=== PATIENT | male | born 1935 | race African-American/Black ===

== ENCOUNTER 2017-05-11 13:03 | Inpatient (IN) | payer MEDICARE, OTHER ==
[~2017-05-11] VITALS: Ht 188 cm; Wt 88.9 kg
[2017-05-11] MEDS ORDERED: SODIUM CHLORIDE 0.9% 500ML 500 ML IV STA (13:44)
[2017-05-11] MEDS ORDERED: SODIUM CHLORIDE 0.9% 500ML 500 ML ONE (13:54)
[2017-05-11 14:20] LABS: BASOPHILS # (AUTO) 0.1 (0.0-0.1); BASOPHILS % 0.8 % (0.0-1.0); EOSINOPHILS # (AUTO) 0.3 (0.0-0.4); EOSINOPHILS % 4.2 % (0.0-6.0); HEMOGLOBIN 12.3 g/dL (14.0-18.0); LYMPHOCYTES # (AUTO) 1.4 (1.0-3.2); LYMPHOCYTES % 17.6 % (18.0-39.1); MEAN CORPUSCULAR HEMOGLOBIN 25.3 pg (28-32); MEAN CORPUSCULAR HGB CONC 30.8 g/dL (31-35); MEAN CORPUSCULAR VOLUME 82.1 fL (81-99); MONOCYTES # (AUTO) 0.6 (0.2-0.8); MONOCYTES % 7.7 % (4.4-11.3); NEUTROPHILS # (AUTO) 5.3 (2.1-6.9); NEUTROPHILS % 69.2 % (38.7-80.0); PLATELET COUNT 369 x10e3/uL (140-360); RED BLOOD COUNT 4.87 x10e6/uL (4.3-5.7); RED CELL DISTRIBUTION WIDTH 15.4 % (11.7-14.4)
[2017-05-11 14:22] LABS: BILIRUBIN,URINE NEGATIVE (NEGATIVE); KETONES,URINE NEGATIVE (NEGATIVE); LEUKOCYTE ESTERASE ,URINE 2+ (NEGATIVE); URINE UROBILINOGEN 1 mg/dL (0.2 - 1)
[2017-05-11 14:24] LABS: INR 0.86; PROTHROMBIN TIME 12.2 seconds (11.9-14.5)
[2017-05-11 14:32] LABS: ALANINE AMINOTRANSFERASE 14 IU/L (0-55); ALBUMIN 2.5 g/dL (3.5-5.0); ALBUMIN/GLOBULIN RATIO 0.5 (0.8-2.0); ALKALINE PHOSPHATASE 97 IU/L (40-150); ANION GAP 10.9 mmol/L (8-16); BLOOD UREA NITROGEN 11 mg/dL (7-26); BUN/CREATININE RATIO 14 (6-25); CALCIUM 8.4 mg/dL (8.4-10.2); CARBON DIOXIDE 30 mmol/L (22-29); CHLORIDE 103 mmol/L (98-107); CREATININE, SERUM 0.81 mg/dL (0.72-1.25); EST GLOMERULAR FILTRATION RATE > 60 ML/MIN (60-); GLUCOSE 129 mg/dL (74-118); LIPASE 28 U/L (8-78); POTASSIUM 3.9 mmol/L (3.5-5.1); SODIUM 140 mmol/L (136-145)
[2017-05-11 14:41] LABS: CLARITY,URINE CLOUDY (CLEAR); COLOR,URINE AMBER (YELLOW); NITRITE,URINE POSITIVE (NEGATIVE); PROTEIN,URINE DIPSTICK 2+ (NEGATIVE)
[2017-05-11 14:44] LABS: BACTERIA,URINE FEW /HPF; RBC,URINE >50 /HPF (0-5); WBC,URINE (MAN) >50 /HPF (0-5)
[2017-05-11] MEDS ORDERED: CEFTRIAXONE SOD 1 GM VIAL IM ONE (15:45)
--- NOTE | 2017-05-11 15:45 | Diagnostic Imaging Report ---
PROCEDURE:TESTICULAR ULTRASOUND COMPARISON:None. INDICATIONS:SCROTAL SWELLING TECHNIQUE: Castillo-scale and color doppler images of the testicles and scrotal contents were obtained. Duplex imaging with spectral waveform analysis was performed of the testicular arteries and veins. FINDINGS: Exam limited due to patient positioning. RIGHT SCROTUM: Testicle: 2.8 x 3.1 x 2.6 cm. Mildly heterogeneous echogenicity. 0.5 x 0.3 x 0.3 cm rounded, anechoic lesion in the medial aspect, likely representing a simple testicular cyst. No microcalcifications. No other focal lesions. Epididymal head: A 4.5 x 1.6 x 1.9 cm structure with heterogeneous echotexture is noted in the expected location of the right epididymal head, with dilated blood vessels. Hydrocele: None Varicocele: See above LEFT SCROTUM: Testicle: 4.3 x 3.3 x 4.2 cm. Heterogeneous echogenicity and moderately increased vascularity. 2.8 x 2.0 x 2.0 cm complex solid/cystic lesion is noted in the mid aspect with surrounding vascularity. Epididymal head: 1.2 x 1.6 x 1.9 cm. No focal lesions. No increased vascularity. Hydrocele: Small to moderate Varicocele: None. Mild to moderate edema of the overlying scrotal skin, without well-defined focal lesions or fluid collections. CONCLUSION: 1. Findings suggestive of left orchitis. A complex 2.8 cm solid/cystic lesion in the mid aspect of the left testicle is worrisome for testicular abscess. 2. The right epididymal head is difficult to visualize. A 4.5 cm body structure with heterogeneous echotexture and dilated blood vessels in the expected location of the epididymis may represent a varicocele extending to the epididymal head. 3. 0.5 cm simple right testicular cyst. 4. Small to moderate left hydrocele. Jose Gan M.D. Dictated by: Jose Gan M.D. on 05/11/2017 at 15:54 Electronically approved by: Jose Gan M.D. on 05/11/2017 at 15:54
--- NOTE | 2017-05-11 15:45 | Diagnostic Imaging Report ---
PROCEDURE:TESTICULAR DOPPLER ULTRASOUND COMPARISON:None. CONCLUSION: Please see testicular ultrasound performed same day. Jose Gan M.D. Dictated by: Jose Gan M.D. on 05/11/2017 at 15:54 Electronically approved by: Jose Gan M.D. on 05/11/2017 at 15:54
[2017-05-11] MEDS ORDERED: CEFTRIAXONE SOD 1 GM VIAL IV ONE (16:15)
[2017-05-11] MEDS ORDERED: PIPERACILLIN/TAZO 4.5 GM 100 ML IV ONE (16:15)
[2017-05-11] MEDS ORDERED: MORPHINE SULFATE 2 MG/ML SYR IV PRN (17:15)
[2017-05-11] MEDS ORDERED: SODIUM CHLORIDE FLUSH 10 ML SYR INJ PRN (17:15)
[2017-05-11] MEDS ORDERED: ONDANSETRON HCL INJ 2 MG/ML VIAL IV PRN (17:15)
[2017-05-11] MEDS ORDERED: PIPERACILLIN/TAZO 4.5 GM 50 ML IV ONE (17:45)
[2017-05-11] MEDS: SODIUM CHLORIDE 0.9% 1000ML 1,000 ML IV SCH (17:47)
[2017-05-11] MEDS ORDERED: PIPER-TAZ 3.375 GM 50 ML IV SCH (18:00)
[2017-05-11] MEDS ORDERED: CEFTRIAXONE1 GM IM (18:00)
[2017-05-11] MEDS ORDERED: LASIX20 MG PO (18:00)
[2017-05-11] MEDS ORDERED: NITROFURANTOIN100 MG PO (18:00)
[2017-05-11] MEDS ORDERED: LORAZEPAM0.5 MG PO (18:00)
[2017-05-11] MEDS ORDERED: BISCOLAX10 MG RC (18:00)
[2017-05-11] MEDS ORDERED: BISACODYL5 MG PO (18:00)
[2017-05-11] MEDS ORDERED: LISINOPRIL10 MG PO (18:00)
[2017-05-11] MEDS ORDERED: REMERON15 MG PO (18:00)
[2017-05-11] MEDS ORDERED: CLONIDINE HCL0.1 MG PO (18:00)
[2017-05-11] MEDS ORDERED: COREG12.5 MG PO (18:00)
[2017-05-11] MEDS ORDERED: HYDRALAZINE HCL25 MG PO (18:00)
[2017-05-11] MEDS ORDERED: SEROQUEL25 MG PO (18:00)
[2017-05-11] MEDS ORDERED: FERROUS SULFAT325 MG PO (18:00)
--- NOTE | 2017-05-11 20:49 | History and Physical ---
CHIEF COMPLAINT: The patient's daughter is at bedside. The patient has dementia. [facility] is a [facility] resident. HISTORY OF PRESENT ILLNESS: Mr. Pathak is an 82-year-old male who was sent from the [facility] because of scrotal swelling and possible bleeding from the scrotal area. In the emergency room, scrotal exam showed enlargement of the scrotum. The patient underwent a testicular ultrasound which showed findings suggestive of left orchitis and worrisome for testicular abscess. The patient has dementia. He is complaining of some pain in the scrotal area, but denies any complaints. He has a history of stroke, CHF, and has been a [facility] resident, bedbound. REVIEW OF SYSTEMS: GENERAL: Denies any fever or chills. HEAD: Denies any head trauma or head injury. ENT: Denies any earache, nosebleed, throat pain. CVS: Denies any chest pain. RESPIRATORY: Denies any shortness of breath. GI: Denies any nausea, vomiting. MUSCULOSKELETAL: Denies any arthralgias or myalgias. NEUROLOGIC: The patient has history of stroke and possible weak on the left side. PAST MEDICAL HISTORY: Dementia, hypertension, hyperlipidemia, history of stroke with left-sided weakness. He is able to move the left side. PAST SURGICAL HISTORY: Hip fracture repair. FAMILY AND SOCIAL HISTORY: [facility] is [facility]. He does not have any smoking history or drinking history. Daughter is at the bedside. PHYSICAL EXAMINATION VITAL SIGNS: Temperature 98.3, pulse 59, blood pressure 159/80, respiratory rate 18, O2 sat 98%. SKIN: Warm and dry. GENERAL APPEARANCE: He is an elderly male not in any obvious distress. He is awake and alert but confused. HEENT: Head is atraumatic and normocephalic. The right eyelid is drooping. Oral mucosa is dry. Possible facial droop, which is old. Poor oral hygiene. NECK: Supple. No JVD. Thyroid is not enlarged. CHEST: Clear to auscultation bilaterally. No wheezing, no crackles. HEART: S1 and S2 audible. ABDOMEN: Soft, nontender. : Scrotal enlargement. EXTREMITIES: No clubbing, cyanosis or edema. NEURO: He is awake and alert. He follows commands. He has some weakness on the left side. LABORATORY DATA: White count of 7.6, hemoglobin 12.3, platelet count 369,000. Chemistry is within normal limits. Sodium 140, potassium 3.9, BUN 11, creatinine 0.89. Blood cultures and urine cultures are pending. ASSESSMENT: Hal Pathak is a [facility] resident with dementia. He presented with scrotal abscess and swelling. CURRENT PROBLEMS 1. Scrotal abscess, swelling. 2. Hypertension. 3. Dementia. PLAN: 1. Urology consult. 2. IV Zosyn. 3. Will consult infectious disease. 4. Continue the patient on IV hydration. 5. Discussed with the patient's daughter at bedside. Job#: [id number]
[2017-05-11 20:55] VITALS: BP 196/88
[2017-05-11 23:27] VITALS: BP 196/88
[2017-05-12] VITALS (8 sets, daily range): BP systolic 130–208; BP diastolic 61–100
[2017-05-12] MEDS: SODIUM CHLORIDE 0.9% 1000ML 1,000 ML IV SCH ×5 (00:58→23:23)
[2017-05-12] MEDS: HYDRALAZINE HCL 20 MG/ML VIAL IV PRN (01:26)
[2017-05-12] MEDS ORDERED: PIPER-TAZ 3.375 GM 50 ML IV SCH (02:00)
[2017-05-12 06:43] LABS: BASOPHILS # (AUTO) 0.1 (0.0-0.1); BASOPHILS % 1.1 % (0.0-1.0); EOSINOPHILS # (AUTO) 0.3 (0.0-0.4); EOSINOPHILS % 4.4 % (0.0-6.0); HEMATOCRIT 33.3 % (38.2-49.6); HEMOGLOBIN 10.7 g/dL (14.0-18.0); LYMPHOCYTES # (AUTO) 1.6 (1.0-3.2); LYMPHOCYTES % 21.4 % (18.0-39.1); MEAN CORPUSCULAR HEMOGLOBIN 25.5 pg (28-32); MEAN CORPUSCULAR HGB CONC 32.1 g/dL (31-35); MEAN CORPUSCULAR VOLUME 79.3 fL (81-99); MONOCYTES # (AUTO) 0.6 (0.2-0.8); MONOCYTES % 8.6 % (4.4-11.3); NEUTROPHILS # (AUTO) 4.7 (2.1-6.9); NEUTROPHILS % 64.2 % (38.7-80.0); PLATELET COUNT 327 x10e3/uL (140-360); RED CELL DISTRIBUTION WIDTH 15.3 % (11.7-14.4)
[2017-05-12 07:02] LABS: ALANINE AMINOTRANSFERASE 12 IU/L (0-55); ALBUMIN/GLOBULIN RATIO 0.5 (0.8-2.0); ALKALINE PHOSPHATASE 79 IU/L (40-150); ANION GAP 9.6 mmol/L (8-16); BLOOD UREA NITROGEN 9 mg/dL (7-26); BUN/CREATININE RATIO 15 (6-25); CALCIUM 8.1 mg/dL (8.4-10.2); CARBON DIOXIDE 26 mmol/L (22-29); CHLORIDE 109 mmol/L (98-107); CREATININE, SERUM 0.62 mg/dL (0.72-1.25); EST GLOMERULAR FILTRATION RATE > 60 ML/MIN (60-); GLUCOSE 98 mg/dL (74-118); POTASSIUM 3.6 mmol/L (3.5-5.1); SODIUM 141 mmol/L (136-145)
--- NOTE | 2017-05-12 09:22 | Consultation ---
DATE OF CONSULTATION: May 12, 2017 UROLOGY CONSULTATION REASON FOR CONSULTATION: Orchitis. HISTORY OF PRESENT ILLNESS: Hal Pathak is an 82-year-old man who is debilitated. He has dementia and lives in a [facility]. The patient was previously seen by Dr. Cote in [place]. The patient apparently has enlarged prostate, as well as chronic urinary retention. This has been managed with a Samuels catheter. He used to get that changed at Dr. Cote's office on a monthly basis. Since the patient has been in a [facility], it has been changed in the [facility]. He has not had urological followup in some time. The patient has had recurrent urinary tract infections. Last week was noted to have enlargement of the testicle. He was transferred to the emergency room where he was evaluated and admitted. Most of information is obtained from the patient's daughter, who is at his bedside and his main caregiver. She denies any previous urolithiasis, and denies any previous urological surgery. PAST MEDICAL AND SURGICAL HISTORY 1. Dementia. 2. Hypertension. 3. Hyperlipidemia. 4. History of cerebrovascular accident with left-sided weakness. 5. Status post right hip fracture with ORIF. 6. History of gastrostomy tube that the patient pulled out, and he has since been eating pureed food. CURRENT MEDICATIONS: Please refer to the MAR. ALLERGIES: NONE KNOWN. SOCIAL HISTORY: The patient quit smoking over 20 years ago. There is no current or recent history of smoking, ethanol or drug use. 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 He has a supportive daughter at the bedside. FAMILY HISTORY: Noncontributory to the urological problems. REVIEW OF SYSTEMS: As consistent with the above history of present illness and past medical history, and otherwise negative for all other systems. PHYSICAL EXAMINATION GENERAL: Elderly debilitated man lying in bed in no apparent distress. VITALS: He is currently afebrile with vital signs currently stable. ABDOMEN: Soft, nondistended and nontender without costovertebral angle tenderness. Kidneys not palpable. No hepatosplenomegaly. No obvious evidence of hernia. GENITOURINARY: The patient's scrotum is enlarged. There is an enlarged left testis and epididymis. It does not seem to be tender, but it is fairly substantial. There is no skin fixation. There is no palpable abscesses. No palpable area for drainage. The right testis is not well discernable. Needs to be evaluated on future examination. The patient has an uncircumcised male phallus with severe traumatic hypospadias on to the penile shaft with destruction of the ventral foreskin as well. For the remaining physical examination systems, please refer to the admission history and physical on the chart. LABORATORY STUDIES: The patient's urine and blood cultures are pending. I instructed the emergency room in how to obtain a urine culture from the tubing and not from the bag directly. Hopefully, that was done as directed. White blood cell count 7330, hemoglobin 10.7 and platelets 327,000. The patient's creatinine is normal at 0.62. Calcium is slightly low at 8.1. Urinalysis significant for greater than 50 rbcs and greater than 50 wbcs, nitrite positive urine. Ultrasound of the scrotum revealed an unremarkable testicle with a testicular cyst, as well as a 4.5-cm structure with heterogenous echotexture in the expected location of the right epididymal head. The left testis is enlarged with heterogenous echogenicity and increased vascularity. Also, with a 2.8-cm cystic and solid lesion in the midaspect surrounding vascularity. Also, a left-sided hydrocele. ASSESSMENT 1. Left epididymal orchitis. 2. Possible right epididymitis. 3. Small right testicular cyst. 4. Left hydrocele. 5. BPH. 6. Urinary retention. 7. Urinary tract infection. 8. Traumatic hypospadias. 9. Anemia. 10. Hypocalcemia. 11. Microhematuria. 12. Chronic Samuels catheter. PLAN 1. I agree with the choice of Zosyn. However, the dose should be decreased due to the patient's advanced age. 2. I discussed with the patient's daughter the option of suprapubic cystostomy placement by the radiologist in order to minimize the progression of his penile and urethral damage, as well as decrease the problems with complicated urinary tract infections. He will probably continue to have urinary tract infections. Hopefully, the severity of them could be minimized. She is agreeable to this. 3. I will order a CT stone protocol to evaluate the patient's catheter placement, as well as ensure there is no stones or any other etiology for infection in this patient with chronic Samuels catheter. Thank you very much for involving us in the care of your patient. Will be happy to follow him along with you, as well as an outpatient. Job#: [id number] RAMOS
[2017-05-12] MEDS: MORPHINE SULFATE INJ 4 MG/ML INJ IV PRN (10:34)
[2017-05-12] MEDS ORDERED: SODIUM CHLORIDE 0.9% 500ML 1,000 ML ONE (13:36)
[2017-05-12] MEDS ORDERED: IOPAMIDOL 370 MG/ML 200 ML INFUS..BTL INJ ONE (13:36)
[2017-05-12] MEDS ORDERED: LIDOCAINE HCL 2% LOCAL 20 ML VIAL ONE (13:36)
--- NOTE | 2017-05-12 13:52 | Diagnostic Imaging Report ---
PROCEDURE: CT ABDOMEN AND PELVIS WITHOUT CONTRAST TECHNIQUE: The abdomen and pelvis were scanned utilizing a multidetector helical scanner from the diaphragm to the lesser trochanter without contrast medium. No IV contrast was administered /per protocol/per physician request). Coronal and sagittal multiplanar reformations were obtained. COMPARISON: Patients [facility], US, US TESTICULAR, 05/11/2017, 14:34. INDICATIONS: UTI'S FINDINGS: Artifact from arms placed across patient's torso. ABSENCE OF INTRAVENOUS CONTRAST DECREASES SENSITIVITY FOR DETECTION OF FOCAL LESIONS AND VASCULAR PATHOLOGY. LOWER THORAX: Left basilar pleural-parenchymal scarring. Mild right basilar pleural-parenchymal scarring. No pleural effusion. HEPATOBILIARY: No focal hepatic lesions. No biliary ductal dilatation. SPLEEN: No splenomegaly. PANCREAS: No focal masses or ductal dilatation. ADRENALS: Thickening of the left adrenal gland. KIDNEYS/URETERS: No hydronephrosis. 4.7 cm low-attenuation lesion exophytic off the interpolar region of the right kidney. 2.2 cm low-attenuation lesion in the posterior interpolar region of the right kidney some of these are consistent with cysts. There is a 0.4 cm calculus in the posterior lower pole of the right kidney. PELVIC ORGANS/BLADDER: A Samuels catheter is present, with balloon inflated within the posterior penile urethra level recommend advancement into the urinary bladder. The prostate is enlarged measuring 6.2 cm in transverse dimension, and 7.7 cm in length. Punctate prostatic calcifications. PERITONEUM / RETROPERITONEUM: No free air or fluid. LYMPH NODES: No lymphadenopathy. VESSELS: Atherosclerotic calcifications of the aorta and iliac arteries without aneurysmal dilatation. GI TRACT: No distention or wall thickening. BONES AND SOFT TISSUES: Bilateral small fat-containing inguinal hernias, left greater than right. Small bilateral hydroceles. Left hip prosthesis. Degenerative disc disease at L4-L5. IMPRESSION: 1. a Samuels catheter balloon inflated within the posterior penile urethra; recommend advancement which may be difficult due to enlarged prostate. Reported to [facility] ICU nurse at 1:30 pm on 05/12/2016. 2. Simple represent a nonobstructing calculus in the lower pole of the right kidney. Mikey Diaz M.D. Dictated by: Mikey Diaz M.D. on 05/12/2017 at 14:01 Electronically approved by: Mikey Diaz M.D. on 05/12/2017 at 14:01
[2017-05-12] MEDS: PIPERACILLIN/TAZO 2.25 GM 50 ML IV SCH ×2 (14:00→23:22)
[2017-05-12] MEDS ORDERED: IOPAMIDOL 300MG/ML 100 ML INFUS..BTL IV ONE (14:02)
[2017-05-12] MEDS ORDERED: SODIUM CHLORIDE 0.9% 100 ML 100 ML ONE (14:04)
[2017-05-12] MEDS ORDERED: FENTANYL CITRATE/PF 100MCG/2 ML INJ ONE (14:13)
[2017-05-12] MEDS ORDERED: MIDAZOLAM HCL 2 MG/2 ML VIAL ONE (14:13)
[2017-05-13] VITALS (8 sets, daily range): BP systolic 129–196; BP diastolic 60–98
[2017-05-13] MEDS: MORPHINE SULFATE INJ 4 MG/ML INJ IV PRN (00:24)
[2017-05-13] MEDS: PIPERACILLIN/TAZO 2.25 GM 50 ML IV SCH (05:45)
[2017-05-13] MEDS: HYDRALAZINE HCL 20 MG/ML VIAL IV PRN ×3 (06:35→17:17)
[2017-05-13] MEDS: SODIUM CHLORIDE 0.9% 1000ML 1,000 ML IV SCH (10:48)
[2017-05-13] MEDS: AMIKACIN SULFATE 500 MG in SODIUM CHLORIDE 0.9% 100 ML IV SCH (13:52)
[2017-05-13] MEDS ORDERED: ACETAMINOPHEN 325 MG TAB PO PRN (17:15)
[2017-05-13] MEDS ORDERED: AMIKACIN SULFATE 250 MG/ML 2ML VIAL IV SCH (21:00)
[2017-05-14] VITALS (8 sets, daily range): BP systolic 164–196; BP diastolic 74–93
[2017-05-14] MEDS: HYDRALAZINE HCL 20 MG/ML VIAL IV PRN ×4 (01:12→20:08)
[2017-05-14] MEDS: SODIUM CHLORIDE 0.9% 1000ML 1,000 ML IV SCH ×3 (01:12→17:10)
[2017-05-14] MEDS: AMIKACIN SULFATE 500 MG in SODIUM CHLORIDE 0.9% 100 ML IV SCH ×2 (01:12→14:00)
[2017-05-15] VITALS: BP 117/80
[2017-05-15] MEDS: SODIUM CHLORIDE 0.9% 1000ML 1,000 ML IV SCH ×3 (00:10→20:16)
[2017-05-15] MEDS: HYDRALAZINE HCL 20 MG/ML VIAL IV PRN ×3 (00:10→15:17)
[2017-05-15] MEDS: AMIKACIN SULFATE 500 MG in SODIUM CHLORIDE 0.9% 100 ML IV SCH ×2 (02:00→14:23)
[2017-05-15 04:00] VITALS: BP 164/70
--- NOTE | 2017-05-15 09:18 | Consultation ---
DATE OF CONSULTATION: May 14, 2017 INFECTIOUS DISEASE CONSULTATION I would like to thank Dr. Buddy Mcintosh for this interesting consult. HISTORY OF PRESENT ILLNESS: An 82-year-old gentleman with a past medical history of dementia, hypertension and hyperlipidemia, BPH, chronic Samuels, recurrent urinary tract infection. The patient has been admitted from [facility] for scrotal swelling and possible bleeding from the scrotal area, which the patient had a testicular ultrasound which showed suggestive of left orchitis and some testicular abscess. He is complaining of pain in the scrotal area, but other than that he does not have any fever, chills or diarrhea. Our service has been asked to evaluate and give further recommendations regarding the antibiotics. PAST MEDICAL HISTORY: Hypertension, hyperlipidemia, dementia, BPH, stroke with left-sided weakness, chronic Samuels. PAST SURGICAL HISTORY: Chronic Samuels, hip fracture repair. MEDICATIONS: Reviewed. ALLERGIES: NO KNOWN DRUG ALLERGIES. FAMILY HISTORY/SOCIAL HISTORY: Patient lives in a longterm. No history of smoking or drinking alcohol. Daughter is the feed mixer helper who is at the bedside. PHYSICAL EXAMINATION VITALS: Temperature is 98.6, respiratory rate 18, heart rate 88, blood pressure 160/80. CHEST: Clear to auscultation bilaterally. HEART: S1 and S2 is normal. ABDOMEN: Soft and nontender. : The patient has scrotal swelling and a chronic Samuels in place. NEUROLOGICAL: He is awake and alert, and follows commands. LABS: Reviewed. ASSESSMENT AND PLAN: This is a very pleasant 82-year-old gentleman with a past medical history of dementia, hypertension, stroke, hyperlipidemia, BPH, chronic Samuels presents with sepsis, urinary tract infection, orchitis. I am not concerned about testicular abscess. Will start the patient on intravenous Zosyn 3.375 q.8 h. Urology evaluation is requested. Will continue the patient on this antibiotic and will follow him for further recommendations. Job#: [id number] RAMOS
[2017-05-15 12:01] VITALS: BP 157/76
[2017-05-15 16:00] VITALS: BP 191/89
[2017-05-15 20:16] VITALS: BP 159/77
[2017-05-15 20:20] VITALS: BP 159/77
[2017-05-16 00:31] VITALS: BP_SYST 178; BP_SYST 195; BP_DIAS 80; BP_DIAS 90
[2017-05-16] MEDS: HYDRALAZINE HCL 20 MG/ML VIAL IV PRN ×2 (00:35→20:45)
[2017-05-16] MEDS: SODIUM CHLORIDE 0.9% 1000ML 1,000 ML IV SCH ×3 (01:10→16:00)
[2017-05-16] MEDS: AMIKACIN SULFATE 500 MG in SODIUM CHLORIDE 0.9% 100 ML IV SCH ×2 (02:00→14:00)
[2017-05-16 05:08] VITALS: BP 127/95
[2017-05-16 08:00] VITALS: BP 178/68
--- NOTE | 2017-05-16 08:34 | Diagnostic Imaging Report ---
PROCEDURE:SUPRAPUBIC CATHETER PLACEMENT COMPARISON:None. INDICATIONS:Urinary retention MEDICATIONS:1 mg of Versed and 50 mcg of Fentanyl. FINDINGS:The indwelling Samuels catheter was injected with dilute contrast material. Puncture of the bladder in the midline lasting a 21 gauge AccuStick needle was accomplished. This was followed by placement of a 0.018 " skinny wire. A 6 [place] AccuStick sheath was than placed over the skinny wire. A 0.035 " Amplatz Super Stiff wire was placed through the sheath. Tract was dilated with an 8 mm x 6 cm angioplasty balloon. An 18 [place] peel-away sheath was then placed and followed by a 16 [place] Rutner catheter advanced into the bladder with air insufflation of the retention balloon. Catheter was secured to the skin with sutures. Patient tolerated the procedure well. Fluoroscopy time: 5.9 minutes Total dose: 2895.9 cGycm2 CONCLUSION:Successful fluoroscopic guided suprapubic catheter placement. Shawn Calderon D.O. Dictated by: Shawn Calderon D.O. on 05/16/2017 at 8:42 Electronically approved by: Shawn Calderon D.O. on 05/16/2017 at 8:42
[2017-05-16] MEDS ORDERED: SODIUM CHLORIDE 0.9% 500ML 1,000 ML ONE (10:21)
[2017-05-16] MEDS ORDERED: LIDOCAINE HCL 2% LOCAL 20 ML VIAL ONE (10:21)
[2017-05-16] MEDS ORDERED: IOPAMIDOL 300MG/ML 50ML INFUS..BTL IV ONE (10:22)
[2017-05-16 20:00] VITALS: BP 186/96
[2017-05-17] VITALS: BP 188/87
[2017-05-17] MEDS: HYDRALAZINE HCL 20 MG/ML VIAL IV PRN ×2 (00:50→08:50)
[2017-05-17] MEDS: AMIKACIN SULFATE 500 MG in SODIUM CHLORIDE 0.9% 100 ML IV SCH ×2 (02:50→14:42)
[2017-05-17] MEDS: SODIUM CHLORIDE 0.9% 1000ML 1,000 ML IV SCH ×2 (03:58→09:10)
[2017-05-17 04:00] VITALS: BP 158/77
[2017-05-17 06:55] LABS: BASOPHILS % 0.5 % (0.0-1.0); EOSINOPHILS # (AUTO) 0.3 (0.0-0.4); HEMATOCRIT 32.6 % (38.2-49.6); HEMOGLOBIN 10.6 g/dL (14.0-18.0); LYMPHOCYTES # (AUTO) 1.6 (1.0-3.2); LYMPHOCYTES % 20.3 % (18.0-39.1); MEAN CORPUSCULAR HEMOGLOBIN 25.6 pg (28-32); MEAN CORPUSCULAR HGB CONC 32.5 g/dL (31-35); MEAN CORPUSCULAR VOLUME 78.7 fL (81-99); MONOCYTES # (AUTO) 0.7 (0.2-0.8); MONOCYTES % 9.2 % (4.4-11.3); NEUTROPHILS # (AUTO) 5.3 (2.1-6.9); NEUTROPHILS % 65.4 % (38.7-80.0); PLATELET COUNT 314 x10e3/uL (140-360); RED BLOOD COUNT 4.14 x10e6/uL (4.3-5.7); RED CELL DISTRIBUTION WIDTH 15.7 % (11.7-14.4)
[2017-05-17 07:14] LABS: ANION GAP 9.6 mmol/L (8-16); BLOOD UREA NITROGEN 7 mg/dL (7-26); BUN/CREATININE RATIO 12 (6-25); CARBON DIOXIDE 26 mmol/L (22-29); CHLORIDE 107 mmol/L (98-107); CREATININE, SERUM 0.59 mg/dL (0.72-1.25); EST GLOMERULAR FILTRATION RATE > 60 ML/MIN (60-); GLUCOSE 97 mg/dL (74-118); POTASSIUM 3.6 mmol/L (3.5-5.1); SODIUM 139 mmol/L (136-145)
[2017-05-17 08:08] VITALS: BP 181/84
--- NOTE | 2017-05-17 10:47 | Diagnostic Imaging Report ---
Exam: Suprapubic catheter exchange History: Urinary retention with a urinary tract infection; larger catheter requested. Comparison: Initial suprapubic catheter placement several days prior Findings: The indwelling 16 Czech Rutner catheter was removed over a 0.035 " Amplatz superstiff wire after deflation of the retention balloon. Dilatation of the tract with a 20 Czech dilator was accomplished. A new 18 Czech Rosebud tip Samuels catheter was advanced into the bladder. Retention balloon was inflated with 10 cc of saline. Patient tolerated the procedure well. Fluoroscopy time: 1.8 minutes Total dose: 577.1 cGycm2 Impression: Successful exchange of a suprapubic urinary bladder catheter. Signed by: Dr. Shawn Calderon DO on 05/17/2017 7:36 AM
--- NOTE | 2017-05-17 10:59 | Diagnostic Imaging Report ---
PROCEDURE:SUPRAPUBIC CATHETER PLACEMENT COMPARISON:None. INDICATIONS:Urinary retention MEDICATIONS:1 mg of Versed and 50 mcg of Fentanyl. FINDINGS:The indwelling Samuels catheter was injected with dilute contrast material. Puncture of the bladder in the midline lasting a 21 gauge AccuStick needle was accomplished. This was followed by placement of a 0.018 " skinny wire. A 6 [place] AccuStick sheath was than placed over the skinny wire. A 0.035 " Amplatz Super Stiff wire was placed through the sheath. Tract was dilated with an 8 mm x 6 cm angioplasty balloon. An 18 [place] peel-away sheath was then placed and followed by a 16 [place] Rutner catheter advanced into the bladder with air insufflation of the retention balloon. Catheter was secured to the skin with sutures. Patient tolerated the procedure well. Fluoroscopy time: 5.9 minutes Total dose: 2895.9 cGycm2 CONCLUSION:Successful fluoroscopic guided suprapubic catheter placement. Shawn Calderon D.O. Dictated by: Shawn Calderon D.O. on 05/16/2017 at 8:42 Electronically approved by: Shawn Calderon D.O. on 05/16/2017 at 8:42
--- NOTE | 2017-05-17 11:32 | Discharge Summary ---
FINAL DIAGNOSES 1. Recurrent urinary tract infection. 2. Left epididymal orchitis. 3. Testicular cyst. 4. Hydrocele. 5. Dementia. 6. Bedbound status. 7. History of cerebrovascular accident. 8. History of hip fracture with open reduction and internal fixation. 9. Percutaneous endoscopic gastrostomy tube. ADMISSION HISTORY AND HOSPITAL COURSE: Mr. Pathak is an 82-year-old male who presented from [facility] with testicular swelling and pain. Urology was consulted. They recommended the patient has orchitis and epididymitis. Interventional radiology was consulted to do a suprapubic catheter, which was done. ID was consulted, and the patient was continued on IV antibiotics. Cultures grew out pseudomonas in the urine, which was resistant. Dr. Frausto recommended amikacin, which has been started. LTAC was planned. However, the insurance approved for fci, SNF. The patient will be going back to [facility] when cleared by ID and urology. Antibiotics will be written per ID. The patient will follow up with urology and ID per their recommendations. LINDA SAMUEL MD Job#: [id number]
[2017-05-17 12:10] VITALS: BP 168/97
[2017-05-17] MEDS ORDERED: MORPHINE SULFATE 2 MG/ML SYR IV PRN (16:15)
[2017-05-17 16:24] VITALS: BP 176/112
== END 2017-05-17 17:00 | DRG 698 ==
LOC: ER 13:03 → ERHOLD 17:35 → IMCU 20:16 → OBSVTOIN 05-12 17:48 → MED/SURG3 05-14 08:25
PROVIDERS: ADMIT Internal Medicine; ATTEND Internal Medicine
PROC: 02HV33Z Insertion of Infusion Device into Superior Vena Cava, Percutaneous Approach (ICD-10-PCS; 2017-05-15)
PROC: 0T9B30Z Drainage of Bladder with Drainage Device, Percutaneous Approach (ICD-10-PCS; principal; 2017-05-16)
DX: T83.511A Infection and inflammatory reaction due to indwelling urethral catheter, initial encounter (principal); A41.9 Sepsis, unspecified organism; L89.152 Pressure ulcer of sacral region, stage 2; L89.312 Pressure ulcer of right buttock, stage 2; L89.322 Pressure ulcer of left buttock, stage 2; I69.354 Hemiplegia and hemiparesis following cerebral infarction affecting left non-dominant side; R31.29 Other microscopic hematuria; N39.0 Urinary tract infection, site not specified; F03.90 Unspecified dementia, unspecified severity, without behavioral disturbance, psychotic disturbance, mood disturbance, and anxiety; E83.51 Hypocalcemia; N44.2 Benign cyst of testis; Z74.01 Bed confinement status; Z66 Do not resuscitate; I86.1 Scrotal varices; N43.3 Hydrocele, unspecified; I10 Essential (primary) hypertension; E78.5 Hyperlipidemia, unspecified; N40.1 Benign prostatic hyperplasia with lower urinary tract symptoms; R33.8 Other retention of urine; Z87.440 Personal history of urinary (tract) infections; N45.3 Epididymo-orchitis; Q54.8 Other hypospadias; D64.9 Anemia, unspecified; B96.5 Pseudomonas (aeruginosa) (mallei) (pseudomallei) as the cause of diseases classified elsewhere; Z16.35 Resistance to multiple antimicrobial drugs
CPT/HCPCS: 36415; 36568; 51102; 74176; 74470; 76870; 77001; 80048; 80053; 80150; 81001; 82948; 83690; 85025; 85610; 87040; 87086; 87186; 93976; 96367; 96376; 97139; 99285; C1725; G0378; J0360; J0696; J2001; J2250; J2270; J2405; J2543; J7030; J7040; J7050; Q9967

== ENCOUNTER 2017-08-25 13:42 | Inpatient (IN) | payer MEDICARE, OTHER ==
[~2017-08-25] VITALS: Ht 188 cm; Wt 94.0 kg
[~2017-08-25 13:42] MED LIST: BISACODYL5 MG PO; BISCOLAX10 MG RC; CEFTRIAXONE1 GM IM; CLONIDINE HCL0.1 MG PO; COREG12.5 MG PO; FERROUS SULFAT325 MG PO; HYDRALAZINE HCL25 MG PO; LASIX20 MG PO; LISINOPRIL10 MG PO; LORAZEPAM0.5 MG PO; NITROFURANTOIN100 MG PO; REMERON15 MG PO; SEROQUEL25 MG PO
--- OUTSIDE RECORDS SUMMARY | 2017-08-25 13:45 | XMS REPORT | Continuity of Care Document ---
Author Author [facility] Organization [facility] Address [address] [place] [address] Phone Unavailable Care Team Providers Care Talent Acquisition Program Manager Name Role Phone SHREE BAUTISTA M.D. PCP Insurance Providers Guarantor Moira Pathak Address [address] [facility] [place] [address] Email NONE Payer [facility] Policy Number [id number] Subscriber's Name Moira Pathak Relationship 18 Self / Same As Patient Group Number [id number] Effective Date 17 Advance Directives Directive Response Recorded Date/Time Does the patient have an advance directive? No 05/11/17 10:37pm If yes, is advance directive on file with [facility]? No 05/11/17 5:23pm If not on file with [facility] will patient provide a copy? No 05/11/17 5:23pm Do you have a Directive to Physician? No 05/11/17 5:23pm Do you have a Medical Power of Personal Banker? No 05/11/17 5:23pm Do you have an out of hospital Do Not Resuscitate Order? No 05/11/17 5:23pm Do you have any special needs we should be aware of? No 05/11/17 5:23pm Do you have a support person here with you today? Yes 05/11/17 5:23pm Did patient receive Notice of Privacy Practices? Yes 05/11/17 5:23pm Did patient receive patient rights and responsibilities? Yes 05/11/17 5:23pm Problems Medical Problem Onset Date Status Orchitis, left Unknown UTI (urinary tract infection) due to urinary indwelling Samuels catheter Unknown Medications Current Home Medications Medication Dose Units Route Directions Days Qty Instructions Start Date Bisacodyl 5 Mg Tablet.dr 5 Mg Oral As Needed Carvedilol (Coreg) 12.5 Mg Tab 12.5 Mg Oral Every 12 Hours Clonidine Hcl 0.1 Mg Tablet 1 Tab Oral Three Times A Day as needed for High Blood Pressure 60 Tab Ferrous Sulfate 325 Mg Tablet 325 Mg Oral Daily Hydralazine Hcl 25 Mg Tab 50 Mg Oral Every 6 Hours Lorazepam 0.5 Mg Tablet 0.5 Mg Oral As Needed Mirtazapine (Remeron) 15 Mg Tablet 15 Mg Oral Bedtime Past Home Medications Medication Directions Ordered Status Bisacodyl (Biscolax) 10 Mg Supp.rect, 10 Supp Rectal As Needed Discontinued Ceftriaxone Sodium (Ceftriaxone) 1 Gm Vial, 1 Gm Intramusc Daily Discontinued Furosemide (Lasix) 20 Mg Tablet, 20 Mg Oral Daily Discontinued Lisinopril 10 Mg Tablet, 10 Mg Oral Daily Discontinued Nitrofurantoin Macrocrystal (Nitrofurantoin) 100 Mg Capsule, 100 Mg Oral Daily Discontinued Quetiapine Fumarate (Seroquel) 25 Mg Tablet, 12.5 Mg Oral Discontinued Social History Social History Problem Response Recorded Date/Time Onset Date Status Hx Psychiatric Problems Yes 05/11/2017 10:37pm Not Applicable Not Applicable Hx Eating Disorder No 05/11/2017 10:37pm Not Applicable Not Applicable Hx Substance Use Disorder No 05/11/2017 10:37pm Not Applicable Not Applicable Hx Depression No 05/11/2017 10:37pm Not Applicable Not Applicable Hx Alcohol Use No 05/11/2017 10:37pm Not Applicable Not Applicable Hx Substance Use Treatment No 05/11/2017 10:37pm Not Applicable Not Applicable Hx Physical Abuse No 05/11/2017 10:37pm Not Applicable Not Applicable Smoking Status Start Date Stop Date Former smoker Hospital Discharge Instructions No hospital discharge instruction information available. Plan of Care Discharge Date 05/17/17 5:00pm Disposition TRANSFER [facility] Instructions/Education Provided Orchitis Prescriptions See Medication Section Referrals (Infectious Disease) Entered Date: 05/17/2017 3:00pm (Urology) Entered Date: 05/17/2017 3:00pm Functional Status Query Response Date Recorded FUNCTIONAL STATUS ` May 14, 2017 10:50am Assistive Devices None May 11, 2017 11:27pm Ambulation Ability Total Assistance May 11, 2017 11:27pm Toileting Ability Total Assistance May 15, 2017 6:05pm Allergies, Adverse Reactions, Alerts No known allergies. Immunizations No immunization information available. Vital Signs Acute Vital Signs Vital Response Date/Time Temperature (Fahrenheit) 99.0 degrees F (97.6 - 99.5) 05/17/2017 4:24pm Pulse Pulse Rate (adult) 73 bpm (60 - 90) 05/17/2017 4:24pm Respiratory Rate 17 bpm (12 - 24) 05/17/2017 4:24pm Blood Pressure 176/112 mm Hg 05/17/2017 4:24pm Height 6 ft 2 in 05/11/2017 1:15pm Weight 196.06 lb 05/17/2017 8:08am Body Mass Index 25.2 kg/m^2 05/17/2017 8:08am Results Laboratory Results Test Name Result Units Flags Reference Collection Date/Time Result Date/ Time Comments White Blood Count 8.06 x10e3/uL 4.8-10.8 05/17/2017 6:29am 05/17/2017 6 :58am Red Blood Count 4.14 x10e6/uL L 4.3-5.7 05/17/2017 6:29am 05/17/2017 6: 58am Hemoglobin 10.6 g/dL L 14.0-18.0 05/17/2017 6:29am 05/17/2017 6:58am Hematocrit 32.6 % L 38.2-49.6 05/17/2017 6:29am 05/17/2017 6:58am Mean Corpuscular Volume 78.7 fL L 81-99 05/17/2017 6:05/17/2017 6: 58am Mean Corpuscular Hemoglobin 25.6 pg L -05/17/2017 6:2017 6:58am Mean Corpuscular Hemoglobin Concent 32.5 g/dL -05/17/2017 6:05/17/2017 6:58am Red Cell Distribution Width 15.7 % H 11.7-14.4 05/17/2017 6:2017 6:58am Platelet Count 314 x10e3/uL 140-360 05/17/2017 6:05/17/2017 6: 58am Neutrophils (%) (Auto) 65.4 % 38.7-80.0 05/17/2017 6:05/17/2017 6: 58am Lymphocytes (%) (Auto) 20.3 % 18.0-39.1 05/17/2017 6:05/17/2017 6: 58am Monocytes (%) (Auto) 9.2 % 4.4-11.3 05/17/2017 6:05/17/2017 6: 58am Eosinophils (%) (Auto) 4.0 % 0.0-6.0 05/17/2017 6:05/17/2017 6: 58am Basophils (%) (Auto) 0.5 % 0.0-1.0 05/17/2017 6:05/17/2017 6:58am IM GRANULOCYTES % 0.6 % 0.0-1.0 05/17/2017 6:05/17/2017 6:58am Neutrophils # (Auto) 5.3 2.1-6.9 05/17/2017 6:05/17/2017 6:58am Lymphocytes # (Auto) 1.6 1.0-3.2 05/17/2017 6:05/17/2017 6:58am Monocytes # (Auto) 0.7 0.2-0.8 05/17/2017 6:05/17/2017 6:58am Eosinophils # (Auto) 0.3 0.0-0.4 05/17/2017 6:05/17/2017 6:58am Basophils # (Auto) 0.0 0.0-0.1 05/17/2017 6:29am 05/17/2017 6:58am Absolute Immature Granulocyte (auto 0.05 x10e3/uL 0-0.1 05/17/2017 6: 29am 05/17/2017 6:58am Prothrombin Time 12.2 seconds 11.9-14.5 05/11/2017 1:50pm 05/11/2017 2: 25pm Prothromb Time International Ratio 0.86 05/11/2017 1:50pm 2017 2:25pm Oral Anticoagulant Therapy INR Values: 1. Low Intensity Therapy 1.5 - 2.0 2. Moderate Intensity Therapy 2.0 - 3.0 3. High Intensity Therapy(1) 2.5 - 3.5 4. High Intensity Therapy(2) 3.0 - 4.0 5. Panic Value INR > 5.0 Urine Color EFREM H YELLOW 05/11/2017 1:50pm 05/11/2017 2:41pm Urine Clarity CLOUDY H CLEAR 05/11/2017 1:50pm 05/11/2017 2:41pm Urine Specific [place] 1.010 1.010-1.025 05/11/2017 1:50pm 2017 2:41pm Urine pH 8 H 5 - 7 05/11/2017 1:50pm 05/11/2017 2:41pm Urine Leukocyte Esterase 2+ H NEGATIVE 05/11/2017 1:50pm 05/11/2017 2: 41pm Urine Nitrite POSITIVE H NEGATIVE 05/11/2017 1:50pm 05/11/2017 2:41pm Urine Protein 2+ H NEGATIVE 05/11/2017 1:50pm 05/11/2017 2:41pm Urine Glucose (UA) NEGATIVE NEGATIVE 05/11/2017 1:50pm 05/11/2017 2: 41pm Urine Ketones NEGATIVE NEGATIVE 05/11/2017 1:50pm 05/11/2017 2:41pm Urine Urobilinogen 1 mg/dL 0.2 - 1 05/11/2017 1:50pm 05/11/2017 2:41pm Urine Bilirubin NEGATIVE NEGATIVE 05/11/2017 1:50pm 05/11/2017 2: 41pm Urine Blood 4+ H NEGATIVE 05/11/2017 1:50pm 05/11/2017 2:41pm Urine WBC >50 /HPF H 0-5 05/11/2017 1:50pm 05/11/2017 2:44pm Urine RBC >50 /HPF H 0-5 05/11/2017 1:50pm 05/11/2017 2:44pm Urine Bacteria FEW /HPF NONE 05/11/2017 1:50pm 05/11/2017 2:44pm Urine Epithelial Cells NONE /LPF NONE 05/11/2017 1:50pm 05/11/2017 2: 44pm Sodium Level 139 mmol/L 136-145 05/17/2017 6:29am 05/17/2017 7:15am Potassium Level 3.6 mmol/L 3.5-5.1 05/17/2017 6:2905/17/2017 7:15am Chloride Level 107 mmol/L 98-107 05/17/2017 6:2905/17/2017 7:15am Carbon Dioxide Level 26 mmol/L 22-05/17/2017 6:29am 05/17/2017 7: 15am Anion Gap 9.6 mmol/L 8-16 05/17/2017 6:05/17/2017 7:15am Blood Urea Nitrogen 7 mg/dL 7-05/17/2017 6:2905/17/2017 7:15am Creatinine 0.59 mg/dL L 0.72-1.25 05/17/2017 6:2905/17/2017 7:15am BUN/Creatinine Ratio 12 6-05/17/2017 6:05/17/2017 7:15am Estimat Glomerular Filtration Rate > 60 ML/MIN 60- 05/17/2017 6: 7:15am Ranges were taken from the National Kidney Disease Education Program and the National Kidney Foundation literature. Reference ranges: 60 or greater: Normal 16-59 (for 3 consecutive months): Chronic kidney disease 15 or less: Kidney failure Glucose Level 97 mg/dL 74-118 05/17/2017 6:29am 05/17/2017 7:15am Calcium Level 8.0 mg/dL L 8.4-10.2 05/17/2017 6:05/17/2017 7:15am Bedside Glucose 112 mg/dL 70-120 05/16/2017 7:2905/16/2017 8:00am Meter ID: [id number] Total Bilirubin < 0.3 mg/dL 0.2-1.2 05/12/2017 6:20am 05/12/2017 7: 06am Aspartate Amino Transf (AST/SGOT) 15 IU/L 5-34 05/12/2017 6:20am 2017 7:06am Alanine Aminotransferase (ALT/SGPT) 12 IU/L 0-55 05/12/2017 6:20am 7:06am Total Protein 6.1 g/dL L 6.5-8.1 05/12/2017 6:20am 05/12/2017 7:06am Albumin 2.0 g/dL L 3.5-5.0 05/12/2017 6:20am 05/12/2017 7:06am Globulin 4.1 g/dL H 2.3-3.5 05/12/2017 6:20am 05/12/2017 7:06am Albumin/Globulin Ratio 0.5 L 0.8-2.0 05/12/2017 6:20am 05/12/2017 7: 06am Alkaline Phosphatase 79 IU/L 40-150 05/12/2017 6:20am 05/12/2017 7: 06am Lipase 28 U/L 8-78 05/11/2017 1:50pm 05/11/2017 2:32pm Random Amikacin Level 2.3 ug/mL 1.0-30.0 05/16/2017 1:20pm 05/17/2017 8 :55am Peak: Therapeutic 20.0 - 30.0 Trough: Therapeutic 1.0 - 8.0 Detection Limit=0.8 <0.8 indicates None Detected Performed at: - [facility] [id number] Supervisor Painting Department: Sang Paulino MD, Phone: [phone] Microbiology Results Procedure Source Organism/Result Collection Date/Time Result Date/Time Result Status Urine Culture Urine,Random PSEUDOMONAS AERUGINOSA 05/11/2017 1:50pm 2017 9:04am Final Blood Culture Blood NO GROWTH AFTER 72 HOURS 11:30am 05/17/2017 11:38am Preliminary Procedures Procedure Status Date Provider(s) Testicular ultrasound Active 05/11/17 ERICKA DAVID MD Dup-scan artl felisa abdl/pel/scrot&/RPR orgn lmt Active 05/11/[address] of abdomen and pelvis without contrast Active 05/12/17 DENA VALENCIA MD Encounters Encounter Location Arrival/Admit Date Discharge/Depart Date Attending Provider Admitted Inpatient [facility] 05/12/17 5:48pm LINDA SAMUEL MD
--- OUTSIDE RECORDS SUMMARY | 2017-08-25 13:45 | XMS REPORT ---
Author Author [facility] Address Unknown Phone Unavailable Care Team Providers Care Mortar Worker Name Role Phone LINDA SAMUEL Unavailable Unavailable Problems This patient has no known problems. Allergies, Adverse Reactions, Alerts This patient has no known allergies or adverse reactions. Medications This patient has no known medications. Results Test Description Test Time Test Comments Text Results Atomic Results Result Comments SPECIAL PROCEDURE IN [place] [address] Patient Name: MOIRA THAYER MR #: [id number] : 1935 Age/Sex: 82/M Req #: [id number] Adm Physician: LINDA SAMUEL MD Ordered by : DENA VALENCIA MD Report #: [id number] Location: [facility] Room/Bed: [facility] Procedure: [id number] IR/SPECIAL PROCEDURE IN [place] Exam Date: Exam Time: REPORT STATUS: Signed Exam: Suprapubic catheter exchange History: Urinary retention with a urinary tract infection; larger catheter requested. Comparison: Initial suprapubic catheter placement several days prior Findings: The indwelling 16 Latvian Rutner catheter was removed over a 0.035 " Amplatz superstiff wire after deflation of the retention balloon. Dilatation of the tract with a 20 Latvian dilator was accomplished. A new 18 Latvian [place] tip Samuels catheter was advanced into the bladder. Retention balloon was inflated with 10 cc of saline. Patient tolerated the procedure well. Fluoroscopy time: 1.8 minutes Total dose: 577.1 cGycm2 Impression: Successful exchange of a suprapubic urinary bladder catheter. Signed by: Dr. Yenny Calderon DO on 05/17/2017 7:36 AM Dictated By: YENNY CALDERON DO 43 Transcribed By: VANE on 05/17/171043 COPY TO: DENA VALENCIA MD SPECIAL PROCEDURE IN [place] [address] Patient Name: MOIRA THAYER MR #: [id number] : 1935 Age/Sex: 82/M Req #: [id number] Adm Physician: LINDA SAMUEL MD Ordered by : DENA VALENCIA MD Report #: [id number] Location: [facility] Room/Bed: [facility] Procedure: [id number] IR/SPECIAL PROCEDURE IN [place] Exam Date: Exam Time: REPORT STATUS: Signed PROCEDURE: SUPRAPUBIC CATHETER PLACEMENT COMPARISON: None. INDICATIONS: Urinary retention MEDICATIONS: 1 mg of Versed and 50 mcg of Fentanyl. FINDINGS: The indwelling Samuels catheter was injected with dilute contrast material. Puncture of the bladder in the midline lasting a 21 gauge AccuStick needle was accomplished. This was followed by placement of a 0.018 " skinny wire. A 6 Latvian AccuStick sheath was than placed over the skinny wire. A 0.035 " Amplatz Super Stiff wire was placed through the sheath. Tract was dilated with an 8 mm x 6 cm angioplasty balloon. An 18 Latvian peel-away sheath was then placed and followed by a 16 Latvian Rutner catheter advanced into the bladder with air insufflation of the retention balloon. Catheter was secured to the skin with sutures. Patient tolerated the procedure well. Fluoroscopy time: 5.9 minutes Total dose: 2895.9 cGycm2 CONCLUSION: Successful fluoroscopic guided suprapubic catheter placement. Yenny Calderon D.O. Dictated by: Yenny Calderon D.O. on 05/16/2017 at 8:42 Electronically approved by: Yenny Calderon D.O. on 05/16/2017 at 8:42 Dictated By: YENNY CALDERON DO 08 Transcribed By: TERESA on 05/16/17 0842 COPY TO: DENA VALENCIA MD CT ABDOMEN/PELVIS WO [place] [address] Patient Name: MOIRA THAYER MR #: [id number] : 1935 Age/Sex: 82/M Req # : [id number] [facility] Physician: LINDA SAMUEL MD Ordered by: DENA VALENCIA MD Report #: [id number] Location: [facility] Room/Bed: [place] [address] _ Procedure: [id number] CT/CT ABDOMEN/PELVIS WO Exam Date: 05/12/17 Exam Time: 1015 REPORT STATUS: Signed PROCEDURE: CT ABDOMEN AND PELVIS WITHOUT CONTRAST TECHNIQUE: The abdomen and pelvis were scanned utilizing a multidetector helical scanner from the diaphragm to the lesser trochanter without contrast medium. No IV contrast was administered /per protocol/per physician request). Coronal and sagittal multiplanar reformations were obtained. COMPARISON: [facility], US, US TESTICULAR, 05/11/2017, 14:34. INDICATIONS: UTI'S FINDINGS: Artifact from arms placed across patient's torso. ABSENCE OF INTRAVENOUS CONTRAST DECREASES SENSITIVITY FOR DETECTION OF FOCAL LESIONS AND VASCULAR PATHOLOGY. LOWER THORAX: Left basilar pleural-parenchymal scarring. Mild right basilar pleural-parenchymal scarring. No pleural effusion. HEPATOBILIARY: No focal hepatic lesions. No biliary ductal dilatation. SPLEEN: No splenomegaly. PANCREAS: No focal masses or ductal dilatation. ADRENALS: Thickening of the left adrenal gland. KIDNEYS/ URETERS: No hydronephrosis. 4.7 cm low-attenuation lesion exophytic off the interpolar region of the right kidney. 2.2 cm low-attenuation lesion in the posterior interpolar region of the right kidney some of these are consistent with cysts. There is a 0.4 cm calculus in the posterior lower pole of the right kidney. PELVIC ORGANS/BLADDER: A Samuels catheter is present, with balloon inflated within the posterior penile urethra level recommend advancement into the urinary bladder. The prostate is enlarged measuring 6.2 cm in transverse dimension, and 7.7 cm in length. Punctate prostatic calcifications. PERITONEUM / RETROPERITONEUM: No free air or fluid. LYMPH NODES: No lymphadenopathy. VESSELS: Atherosclerotic calcifications of the aorta and iliac arteries without aneurysmal dilatation. GI TRACT : No distention or wall thickening. BONES AND SOFT TISSUES: Bilateral small fat-containing inguinal hernias, left greater than right. Small bilateral hydroceles. Left hip prosthesis. Degenerative disc disease at L4- L5. IMPRESSION: 1. a Samuels catheter balloon inflated within the posterior penile urethra; recommend advancement which may be difficult due to enlarged prostate. Reported to [facility] ICU nurse at 1:30 pm on 2016. 2. Simple represent a nonobstructing calculus in the lower pole of the right kidney. Mkiey Brewer M.D. Dictated by: Mikey Brewer M.D. on 05/12/2017 at 14:01 Electronically approved by: Mikey Brewer M.D. on 05/12/2017 at 14:01 Dictated By: MONY BRWEER MD, MD 1401 Transcribed By: TERESA on 05/12/17 1401 COPY TO: DENA VALENCIA MD IR CONSULT [address] [place], [place] [address] Patient Name: MOIRA THAYER MR #: [id number] : 1935 Age/Sex: 82/M Req #: [id number] [facility] Physician: LINDA SAMUEL MD Ordered by: DENA VALENCIA MD Report #: [id number] Location: [facility] Room/Bed: [facility] _ Procedure: [id number] DX/IR CONSULT Exam Date: Exam Time: REPORT STATUS: Signed PROCEDURE: SUPRAPUBIC CATHETER PLACEMENT COMPARISON: None. INDICATIONS: Urinary retention MEDICATIONS: 1 mg of Versed and 50 mcg of Fentanyl. FINDINGS: The indwelling Samuels catheter was injected with dilute contrast material. Puncture of the bladder in the midline lasting a 21 gauge AccuStick needle was accomplished. This was followed by placement of a 0.018 " skinny wire. A 6 Latvian AccuStick sheath was than placed over the skinny wire. A 0.035 " Amplatz Super Stiff wire was placed through the sheath. Tract was dilated with an 8 mm x 6 cm angioplasty balloon. An 18 Latvian peel-away sheath was then placed and followed by a 16 Latvian Rutner catheter advanced into the bladder with air insufflation of the retention balloon. Catheter was secured to the skin with sutures. Patient tolerated the procedure well. Fluoroscopy time: 5.9 minutes Total dose: 2895.9 cGycm2 CONCLUSION: Successful fluoroscopic guided suprapubic catheter placement. Yenny Calderon D.O. Dictated by: Yenny Calderon D.O. on 05/16/2017 at 8:42 Electronically approved by: Yenny Calderon D.O. on 05/16/2017 at 8:42 Dictated By: YENNY CALDERON DO 1 Transcribed By: TERESA on 05/16/1742 COPY TO: DENA VALENCIA MD TESTICULAR [place] [address] Patient Name: MOIRA THAYER MR #: [id number] : 1935 Age/Sex: 82/M Req #: [id number] Adm Physician: Ordered by: ERICKA DAVID MD Report #: [id number] Location: ER Room/Bed: Procedure: [id number] US/US TESTICULAR Exam Date: 05/11/17 Exam Time: 1434 REPORT STATUS: Signed PROCEDURE: TESTICULAR ULTRASOUND COMPARISON: None. INDICATIONS: SCROTAL SWELLING TECHNIQUE: Castillo-scale and color doppler images of the testicles and scrotal contents were obtained. Duplex imaging with spectral waveform analysis was performed of the testicular arteries and veins. FINDINGS: Exam limited due to patient positioning. RIGHT SCROTUM: Testicle: 2.8 x 3.1 x 2.6 cm. Mildly heterogeneous echogenicity. 0.5 x 0.3 x 0.3 cm rounded, anechoic lesion in the medial aspect, likely representing a simple testicular cyst. No microcalcifications. No other focal lesions. Epididymal head: A 4.5 x 1.6 x 1.9 cm structure with heterogeneous echotexture is noted in the expected location of the right epididymal head, with dilated blood vessels. Hydrocele: None Varicocele: See above LEFT SCROTUM: Testicle: 4.3 x 3.3 x 4.2 cm. Heterogeneous echogenicity and moderately increased vascularity. 2.8 x 2.0 x 2.0 cm complex solid/cystic lesion is noted in the mid aspect with surrounding vascularity. Epididymal head: 1.2 x 1.6 x 1.9 cm. No focal lesions. No increased vascularity. Hydrocele: Small to moderate Varicocele: None. Mild to moderate edema of the overlying scrotal skin, without well-defined focal lesions or fluid collections. CONCLUSION: 1. Findings suggestive of left orchitis. A complex 2.8 cm solid/cystic lesion in the mid aspect of the left testicle is worrisome for testicular abscess. 2. The right epididymal head is difficult to visualize. A 4.5 cm body structure with heterogeneous echotexture and dilated blood vessels in the expected location of the epididymis may represent a varicocele extending to the epididymal head. 3. 0.5 cm simple right testicular cyst. 4. Small to moderate left hydrocele. Rosie Gan M.D. Dictated by: Rosie Gan M.D. on 05/11/2017 at 15:54 Electronically approved by: Rosie Gan M.D. on 05/11/2017 at 15:54 Dictated By: ROSIE GAN MD 53 Transcribed By: TERESA on 05/11/171553 COPY TO: ERICKA DAVID MD US TESTICULAR DOPPLER LTD [place] [address] Patient Name: MOIRA THAYER MR #: [id number] : 1935 Age/Sex: 82/M Req #: [id number] Adm Physician: Ordered by: ERICKA DAVID MD Report #: [id number] Location: ER Room/Bed: Procedure: [id number] US/US TESTICULAR DOPPLER LTD Exam Date: 05/11/17 Exam Time: 1434 REPORT STATUS: Signed PROCEDURE: TESTICULAR DOPPLER ULTRASOUND COMPARISON: None. CONCLUSION: Please see testicular ultrasound performed same day. Rosie Gan M.D. Dictated by: Rosie Gan M.D. on 05/11/2017 at 15:54 Electronically approved by: Rosie Gan M.D. on 05/11/2017 at 15:54 Dictated By: ROSIE GAN MD 1554 Transcribed By: TERESA on 05/11/17 3487 COPY TO: ERICKA DAVID MD
--- OUTSIDE RECORDS SUMMARY | 2017-08-25 13:45 | XMS REPORT | Clinical Summary ---
Author Author [facility] Organization [facility] Address Unknown Phone Unavailable Care Team Providers Care Affiliate Marketing Manager Name Role Phone Jorge Arceo MD PCP Allergies No Known Allergies Current Medications Prescription Sig. Disp. Refills Start End Date Status Date lisinopril TK 2 TS PO QD 0 09/29/19 Active (PRINIVIL,ZESTRIL) 20 MG 16 tablet hydrALAZINE (APRESOLINE) TK 1 T PO Q 6 H 0 09/29/19 Active 50 MG tablet 16 aspirin (ECOTRIN) 81 MG Take 81 mg by mouth Active enteric coated tablet daily. potassium chloride Take 1 tablet (10 mEq 90 tablet 0 10/31/19 Active (K-DUR) 10 MEQ CR total) by mouth daily. 16 tabletIndications: Hypokalemia amLODIPine (NORVASC) 10 TK 1 T PO QD 90 tablet 0 10/31/19 Active MG tabletIndications: 16 Essential hypertension sulfamethoxazole-trimetho Take 1 tablet by mouth 2 Active prim (BACTRIM DS) 800-160 (two) times a day. mg per tablet carvedilol (COREG) 12.5 TK 1 T PO TID 3 01/05/20 Active MG tablet 16 furosemide (LASIX) 20 MG TK 1 T PO QD 3 12/03/19 Active tablet 16 Active Problems Problem Noted Date S/p left hip fracture 05/25/2016 Overview: 05/25/16 at in [place] Chronic CHF 01/30/2016 Essential hypertension 10/31/2015 Chronic obstructive pulmonary disease with acute exacerbation 10/31/2015 Overview: On oxygen at 2 l NC Dementia with behavioral disturbance 10/31/2015 Benign prostatic hyperplasia with lower urinary tract symptoms 10/31/2015 Overview: permanent catheter Deep vein thrombosis of left lower extremity 10/31/2015 HLD (hyperlipidemia) 10/31/2015 CAD, multiple vessel 10/31/2015 Hypokalemia 10/31/2015 Family History Relation Name Status Comments Father Mother Social History Tobacco Use Types Packs/Day Years Used Date Former Smoker Smokeless Tobacco: Never Used Alcohol Use Drinks/Week oz/Week Comments No Sex Assigned at Date Recorded Not on file Last Filed Vital Signs Not on file Plan of Treatment Health Maintenance Due Date Last Done Comments SHINGRIX VACCINE (#1) 1985 ZOSTER VACCINE 1995 PNEUMOCOCCAL 2000 POLYSACCHARIDE VACCINE AGE 65 AND OVER PNEUMOCOCCAL-13 2000 INFLUENZA VACCINE 11/16/2017 Results Not on fileafter 08/24/2016 Insurance Payer Benefit Subscriber ID Type Phone Address Plan / Group MEDICARE MEDICARE xxxxxxxxxx Medicare [place] PART [place] B MEDICAID MEDICAID xxxxxxxxx Medicaid amily [address] [place] [id number]
--- OUTSIDE RECORDS SUMMARY | 2017-08-25 13:47 | XMS REPORT | Clinical Summary ---
Author Author [facility] Organization [facility] Address Unknown Phone Unavailable Care Team Providers Care Senior Partner Name Role Phone Jorge Arceo MD PCP [...] hip fracture 05/25/2016 Overview: 05/25/16 at in [place] Chronic CHF 01/30/2016 Essential hypertension 10/31/2015 Chronic [...] Plan / Group MEDICARE MEDICARE xxxxxxxxxx Medicare [place], [place] PART A AND B MEDICAID MEDICAID xxxxxxxxx Medicaid amily [address] [place] [id number]
[2017-08-25] MEDS ORDERED: ONDANSETRON HCL 4 MG ORAL DISINTEGRATING TAB PO PRN (14:15)
[2017-08-25 14:20] LABS: BASOPHILS % 0.4 % (0.0-1.0); EOSINOPHILS # (AUTO) 0.2 (0.0-0.4); EOSINOPHILS % 2.3 % (0.0-6.0); HEMATOCRIT 34.3 % (38.2-49.6); LYMPHOCYTES # (AUTO) 1.6 (1.0-3.2); LYMPHOCYTES % 16.6 % (18.0-39.1); MEAN CORPUSCULAR HEMOGLOBIN 25.2 pg (28-32); MEAN CORPUSCULAR HGB CONC 32.1 g/dL (31-35); MEAN CORPUSCULAR VOLUME 78.5 fL (81-99); MONOCYTES # (AUTO) 0.8 (0.2-0.8); NEUTROPHILS # (AUTO) 6.8 (2.1-6.9); NEUTROPHILS % 72.5 % (38.7-80.0); PLATELET COUNT 221 x10e3/uL (140-360); RED BLOOD COUNT 4.37 x10e6/uL (4.3-5.7); RED CELL DISTRIBUTION WIDTH 15.6 % (11.7-14.4)
[2017-08-25] MEDS ORDERED: FOLIC ACID1 MG PO (14:24)
[2017-08-25] MEDS ORDERED: FUROSEMIDE40 MG PO (14:24)
[2017-08-25] MEDS ORDERED: VITAMIN B-121000 MCG PO (14:24)
[2017-08-25] MEDS ORDERED: ASPIR 8181 MG PO (14:24)
[2017-08-25] MEDS ORDERED: VITAMIN D3-ALO1 EACH PEG (14:24)
[2017-08-25] MEDS ORDERED: OXYBUTYNIN CHLOR5 MG PO (14:24)
[2017-08-25] MEDS ORDERED: ULTRAM50 MG PO (14:24)
[2017-08-25] MEDS ORDERED: ERGOCALCIF8000 UNIT/ PEG (14:24)
[2017-08-25] MEDS ORDERED: LISINOPRIL10 MG PO (14:24)
[2017-08-25] MEDS ORDERED: CEFEPIME-D1 GM/50 ML IVP (14:24)
[2017-08-25 14:27] LABS: CLARITY,URINE SL CLOUDY (CLEAR); COLOR,URINE YELLOW (YELLOW); LEUKOCYTE ESTERASE ,URINE 2+ (NEGATIVE); NITRITE,URINE POSITIVE (NEGATIVE); PROTEIN,URINE DIPSTICK 2+ (NEGATIVE)
[2017-08-25 14:28] LABS: BILIRUBIN,URINE 1+ (NEGATIVE); KETONES,URINE NEGATIVE (NEGATIVE); URINE UROBILINOGEN 1 mg/dL (0.2 - 1)
[2017-08-25 14:35] LABS: ALANINE AMINOTRANSFERASE 6 IU/L (0-55); ALBUMIN 2.1 g/dL (3.5-5.0); ALBUMIN/GLOBULIN RATIO 0.5 (0.8-2.0); ALKALINE PHOSPHATASE 58 IU/L (40-150); ANION GAP 11.5 mmol/L (8-16); BLOOD UREA NITROGEN 18 mg/dL (7-26); BUN/CREATININE RATIO 23 (6-25); CALCIUM 8.5 mg/dL (8.4-10.2); CARBON DIOXIDE 30 mmol/L (22-29); CHLORIDE 105 mmol/L (98-107); CREATINE KINASE 138 IU/L (30-200); EST GLOMERULAR FILTRATION RATE > 60 ML/MIN (60-); GLUCOSE 213 mg/dL (74-118); POTASSIUM 3.5 mmol/L (3.5-5.1); SODIUM 143 mmol/L (136-145)
[2017-08-25] MEDS: SODIUM CHLORIDE 0.9% 1000ML 1,000 ML IV SCH (14:35)
[2017-08-25 14:41] LABS: BACTERIA,URINE MODERATE /HPF; EPITHELIAL CELLS,URINE RARE /LPF; MUCUS,URINE FEW (RARE); WBC,URINE (MAN) >50 /HPF (0-5)
[2017-08-25] MEDS: CEFEPIME HCL 2 GM VIAL IV SCH ×2 (15:19→21:12)
--- OUTSIDE RECORDS SUMMARY | 2017-08-25 15:24 | XMS REPORT | Clinical Summary ---
Author Author [facility] Address Unknown Phone Unavailable Care Team Providers Care Toll Booth Operator Name Role Phone Jorge Arceo MD PCP [...] hip fracture 05/25/2016 Overview: 05/25/16 at in [place] Chronic CHF 01/30/2016 Essential hypertension 10/31/2015 Chronic [...] Plan / Group MEDICARE MEDICARE xxxxxxxxxx Medicare [place], [place] PART A AND B MEDICAID MEDICAID xxxxxxxxx Medicaid amily [address] [place] [id number]
[2017-08-25] MEDS ORDERED: LORAZEPAM 0.5 MG TAB PO PRN (18:00)
[2017-08-25] MEDS ORDERED: TRAMADOL HCL 50 MG TAB PO PRN (18:00)
[2017-08-25] MEDS: HYDRALAZINE HCL 25 MG TAB PO SCH (18:00)
[2017-08-25] MEDS ORDERED: BISACODYL 5 MG TAB EC PO PRN (18:00)
[2017-08-25] MEDS: CARVEDILOL 12.5 MG TAB PO SCH (18:00)
[2017-08-25] MEDS ORDERED: LORAZEPAM 0.5 MG TAB PO SCH (18:00)
[2017-08-25] MEDS ORDERED: BISACODYL 5 MG TAB EC PO SCH (18:00)
[2017-08-25] MEDS ORDERED: POTASSIUM CHLORIDE 20 MEQ TAB CR PO NR (18:30)
[2017-08-25 20:10] VITALS: BP 172/80
[2017-08-25] MEDS: MIRTAZAPINE 15 MG TAB PO SCH (21:00)
[2017-08-25] MEDS ORDERED: CEFEPIME HCL 1 GM VIAL IV SCH (22:00)
[2017-08-26 00:15] VITALS: BP 179/76
[2017-08-26 05:15] VITALS: BP 188/84
[2017-08-26] MEDS: HYDRALAZINE HCL 25 MG TAB PO SCH ×4 (06:00→17:12)
[2017-08-26] MEDS: SODIUM CHLORIDE 0.9% 1000ML 1,000 ML IV SCH ×2 (06:00→18:29)
[2017-08-26] MEDS: CARVEDILOL 12.5 MG TAB PO SCH ×2 (06:00→17:12)
[2017-08-26] MEDS: CEFEPIME HCL 2 GM VIAL IV SCH ×3 (06:00→21:41)
[2017-08-26 07:09] LABS: BASOPHILS # (AUTO) 0.1 (0.0-0.1); BASOPHILS % 0.5 % (0.0-1.0); EOSINOPHILS # (AUTO) 0.4 (0.0-0.4); EOSINOPHILS % 3.3 % (0.0-6.0); HEMATOCRIT 30.9 % (38.2-49.6); HEMOGLOBIN 9.9 g/dL (14.0-18.0); LYMPHOCYTES # (AUTO) 1.8 (1.0-3.2); LYMPHOCYTES % 16.7 % (18.0-39.1); MEAN CORPUSCULAR HEMOGLOBIN 25.1 pg (28-32); MEAN CORPUSCULAR VOLUME 78.2 fL (81-99); MONOCYTES % 9.1 % (4.4-11.3); NEUTROPHILS # (AUTO) 7.5 (2.1-6.9); PLATELET COUNT 193 x10e3/uL (140-360); RED BLOOD COUNT 3.95 x10e6/uL (4.3-5.7); RED CELL DISTRIBUTION WIDTH 15.7 % (11.7-14.4)
[2017-08-26 07:22] LABS: ALANINE AMINOTRANSFERASE 6 IU/L (0-55); ALBUMIN 1.9 g/dL (3.5-5.0); ALBUMIN/GLOBULIN RATIO 0.5 (0.8-2.0); ALKALINE PHOSPHATASE 52 IU/L (40-150); ANION GAP 9.4 mmol/L (8-16); BLOOD UREA NITROGEN 15 mg/dL (7-26); BUN/CREATININE RATIO 23 (6-25); CALCIUM 8.4 mg/dL (8.4-10.2); CARBON DIOXIDE 30 mmol/L (22-29); CHLORIDE 106 mmol/L (98-107); CREATININE, SERUM 0.65 mg/dL (0.72-1.25); EST GLOMERULAR FILTRATION RATE > 60 ML/MIN (60-); GLUCOSE 109 mg/dL (74-118); POTASSIUM 3.4 mmol/L (3.5-5.1); SODIUM 142 mmol/L (136-145)
[2017-08-26] MEDS ORDERED: POTASSIUM CHLORIDE 20 MEQ TAB CR PO STA (07:58)
--- NOTE | 2017-08-26 08:13 | History and Physical ---
HISTORY OF PRESENT ILLNESS: An 82-year-old male, past medical history positive for dementia, hypertension. He lives in a halfway facility. Apparently, he was found to have multidrug-resistant Pseudomonas aeruginosa at the halfway facility. Started on cefepime. Patient keeps pulling out IVs. He has not had any good outcome with the antibiotic at the halfway. Patient is sent to the hospital. OTHER REVIEW OF SYSTEMS: The patient is very confused. He could not give me any information. PAST MEDICAL HISTORY: Mainly positive for hypertension, dementia. ALLERGIES: HE IS NOT ALLERGIC TO ANY MEDICATION APPARENTLY. SOCIAL HISTORY: We do not know if he smokes or drinks. He is in a halfway. Most of the information is received from the ER records. PHYSICAL EXAMINATION HEART: Shows regular rhythm. Normal murmur or extra sounds. LUNGS: Clear bilaterally. ABDOMEN: Soft. EXTREMITIES: Show decreased mobility in both lower extremities with thickened toenails. LAB WORK: BMP: Sodium 143, potassium 3.5, chloride 105, CO2 30, BUN 18, creatinine 0.80, glucose 213. CBC: White blood cell count 9.32, hemoglobin 11.0, hematocrit 34.3, platelet count 221,000. AST 9, ALT 6, total bilirubin 0.4, alkaline phosphatase 58. FINAL IMPRESSION 1. Urinary tract infection and prostatitis from multidrug-resistant Pseudomonas aeruginosa. 2. Hypertension. 3. Dementia. 4. Hypokalemia. 5. Vitamin B12 deficiency. 6. Overactive bladder. PLAN OF TREATMENT: We ordered a CBC, BMP. As I said, we will get urine culture. Consultation requested with infectious diseases and Dr. Bojorquez for urology. Medications are going to be the following: He is on normal saline 75 mL an hour, aspirin 81 mg daily, bisacodyl 5 mg daily as needed for constipation, Coreg 12.5 mg twice a day, cefepime 2 g IV q.8 h., clonidine 0.1 mg 3 times a day as needed, vitamin B12 1000 mcg p.o. daily, ferrous sulfate 325 mg daily, folic acid 0.5 mg daily, furosemide 40 mg daily, hydralazine 50 mg q.6 h., lisinopril 10 mg daily, lorazepam 0.5 mg daily as needed for agitation, Remeron 15 mg daily, Zofran 4 mg p.o. q.6 h. as needed for nausea and vomiting, nitroglycerin 0.5 mg twice a day, tramadol twice a day as needed, and vitamin D 50,000 units once a week. Job#: [id number] GE
[2017-08-26] MEDS: ASPIRIN 81 MG CHEW TAB PO SCH (08:49)
[2017-08-26] MEDS: LISINOPRIL 10 MG TAB PO SCH (08:49)
[2017-08-26] MEDS: FOLIC ACID 1 MG TAB PO SCH (08:49)
[2017-08-26] MEDS: FERROUS SULFATE 325 MG TAB PO SCH (08:49)
[2017-08-26] MEDS: FOLIC ACID/CYANOCOB/PYRIDOXINE TAB PO SCH (08:49)
[2017-08-26] MEDS: CYANOCOBALAMIN 1,000 MCG TAB PO SCH (08:49)
[2017-08-26] MEDS: FUROSEMIDE 40 MG TAB PO SCH (08:49)
[2017-08-26] MEDS: OXYBUTYNIN CHLORIDE 5 MG TAB PO SCH ×2 (08:49→17:12)
[2017-08-26 09:00] VITALS: BP 169/86
[2017-08-26] MEDS ORDERED: DEXTROSE IVP SCH (09:00)
[2017-08-26] MEDS ORDERED: VIT D3 PEG SCH (09:00)
[2017-08-26] MEDS ORDERED: [UNRECOGNIZED DRUG - OTHER] PEG SCH (09:00)
[2017-08-26] MEDS ORDERED: B12 PEG SCH (09:00)
[2017-08-26] MEDS ORDERED: CEFEPIME HCL IVP SCH (09:00)
[2017-08-26] MEDS ORDERED: B6 PEG SCH (09:00)
[2017-08-26 11:28] LABS: CLARITY,URINE CLEAR (CLEAR); COLOR,URINE YELLOW (YELLOW); LEUKOCYTE ESTERASE ,URINE NEGATIVE (NEGATIVE); NITRITE,URINE NEGATIVE (NEGATIVE); PROTEIN,URINE DIPSTICK 1+ (NEGATIVE)
[2017-08-26 11:29] LABS: BILIRUBIN,URINE NEGATIVE (NEGATIVE); KETONES,URINE NEGATIVE (NEGATIVE); URINE UROBILINOGEN 1 mg/dL (0.2 - 1)
[2017-08-26 11:48] LABS: EPITHELIAL CELLS,URINE RARE /LPF; MUCUS,URINE RARE (RARE); RBC,URINE 0-5 /HPF (0-5); WBC,URINE (MAN) 0-5 /HPF (0-5)
[2017-08-26 12:00] VITALS: BP 180/91
[2017-08-26 16:00] VITALS: BP 182/90
--- NOTE | 2017-08-26 16:40 | Progress Note ---
DATE: August 26, 2017 INTERNAL MEDICINE PROGRESS NOTE SUBJECTIVE: An 82-year-old male with past medical history positive for advanced dementia, history of hypertension, history of overactive bladder, [facility] because of failure of outpatient treatment for recurrent UTI with prostatitis. He had a multidrug-resistant Pseudomonas aeruginosa. PHYSICAL EXAMINATION HEART: Regular rhythm. Normal S1 and S2 sounds. LUNGS: Clear bilaterally. ABDOMEN: Soft. EXTREMITIES: No evidence of cyanosis, edema or trauma. He has an unstageable sacral decubitus. PLAN OF TREATMENT 1. Continue IV fluids at 75 mL an hour. 2. Cefepime 2 grams IV q.8 h. 3. Aspirin 81 mg daily. 4. Ferrous sulfate 325 mg daily. 5. Tramadol 50 mg twice a day as needed. 6. Lisinopril 10 mg daily. 7. Clonidine 0.1 mg 3 times a day as needed. 8. Folic acid 0.5 mg daily. 9. Oxybutynin 5 mg twice a day. 10. Lorazepam 0.5 mg daily as needed. 11. Carvedilol 12.5 mg twice a day. 12. Bisacodyl 5 mg daily as needed. 13. Remeron 15 mg at bedtime. 14. Multivitamin 1 tablet daily. 15. Vitamin B12 1,000 mcg p.o. daily. 16. Furosemide 40 mg daily. 17. Hydralazine 50 mg q.6 h. 18. We are going to also order a PICC line. 19. Tentative transfer to [facility] if approved by insurance. FINAL IMPRESSION 1. Urinary tract infection and prostatitis with multidrug-resistant Pseudomonas aeruginosa. 2. Hypokalemia. 3. Hypertension. 4. Overactive bladder. 5. Dementia with agitation. Job#: [id number]
[2017-08-26 20:00] VITALS: BP 198/93
[2017-08-26] MEDS: BALSAM PERU/CASTOR OIL 60 GM OINT...G. TP SCH (21:41)
[2017-08-26] MEDS: MIRTAZAPINE 15 MG TAB PO SCH (21:41)
[2017-08-27] VITALS: BP 191/88
[2017-08-27] MEDS: HYDRALAZINE HCL 25 MG TAB PO SCH ×4 (00:13→17:39)
--- NOTE | 2017-08-27 00:48 | Consultation ---
DATE OF CONSULTATION: REASON FOR CONSULTATION: UTI, multidrug resistant. HISTORY OF PRESENT ILLNESS: This is a patient who is an 82-year-old male, history of severe dementia, hypertension, from a senior care. The patient apparently was found to have Pseudomonas aeruginosa, multidrug resistant. He was started on cefepime, but the patient kept pulling his IV out. The patient was confused, does not provide any meaningful information, was transferred here to continue the IV antibiotic to finish 14 days. The patient is still very confused. No further information. Discussed with Dr. Collazo. Apparently, he was having fever and chills. He was started on cefepime. PAST MEDICAL HISTORY: Dementia, also hypertension. PAST SURGICAL HISTORY: Could not be obtained. REVIEW OF SYSTEMS: Could not be obtained. MEDICATION AT [facility]: Reviewed. LABS: Sodium 143, potassium 3.5, creatinine 0.8. White count 10.65. His urine culture here is pending. PHYSICAL EXAMINATION GENERAL: He is alert, confused. VITALS: Stable. Currently afebrile. HEENT: Not icteric. NECK: Supple. CHEST: Clear. ABDOMEN: Soft. IMPRESSION 1. Urinary tract infection, multidrug resistant pseudomonas. 2. Agitation. 3. Dementia. He is currently on cefepime. Continue with above. Will plan for 14 days. Weekly complete blood count. Weekly chemistry panel. Will see how he is going to do. He may need to be sedated in order to calm down. Will reconsider psych evaluation. Will follow with you. Job#: [id number] NATALIA
[2017-08-27] MEDS: CLONIDINE HCL 0.1 MG TAB PO PRN (03:50)
[2017-08-27 04:00] VITALS: BP 170/92
[2017-08-27] MEDS: CEFEPIME HCL 2 GM VIAL IV SCH ×3 (05:35→21:25)
[2017-08-27] MEDS: CARVEDILOL 12.5 MG TAB PO SCH ×2 (05:38→17:40)
[2017-08-27] MEDS: SODIUM CHLORIDE 0.9% 1000ML 1,000 ML IV SCH ×2 (05:38→21:25)
[2017-08-27 07:54] LABS: ANION GAP 8.9 mmol/L (8-16); BLOOD UREA NITROGEN 13 mg/dL (7-26); BUN/CREATININE RATIO 20 (6-25); CALCIUM 8.5 mg/dL (8.4-10.2); CARBON DIOXIDE 30 mmol/L (22-29); CHLORIDE 104 mmol/L (98-107); CREATININE, SERUM 0.64 mg/dL (0.72-1.25); EST GLOMERULAR FILTRATION RATE > 60 ML/MIN (60-); GLUCOSE 110 mg/dL (74-118); POTASSIUM 3.9 mmol/L (3.5-5.1); SODIUM 139 mmol/L (136-145)
[2017-08-27 08:00] VITALS: BP 158/93
[2017-08-27] MEDS: CYANOCOBALAMIN 1,000 MCG TAB PO SCH (09:00)
[2017-08-27] MEDS: FUROSEMIDE 40 MG TAB PO SCH (09:00)
[2017-08-27] MEDS: LISINOPRIL 10 MG TAB PO SCH (09:00)
[2017-08-27] MEDS: FERROUS SULFATE 325 MG TAB PO SCH (09:00)
[2017-08-27] MEDS: OXYBUTYNIN CHLORIDE 5 MG TAB PO SCH ×2 (09:00→17:00)
[2017-08-27] MEDS: FOLIC ACID 1 MG TAB PO SCH (09:00)
[2017-08-27] MEDS: FOLIC ACID/CYANOCOB/PYRIDOXINE TAB PO SCH (09:00)
[2017-08-27] MEDS: BALSAM PERU/CASTOR OIL 60 GM OINT...G. TP SCH ×2 (09:00→21:25)
[2017-08-27] MEDS: ASPIRIN 81 MG CHEW TAB PO SCH (09:54)
[2017-08-27 12:00] VITALS: BP 172/81
--- NOTE | 2017-08-27 15:03 | Consultation ---
DATE OF CONSULTATION: August 26, 2017 REASON FOR CONSULTATION: Dystrophic toenails with eczema to both lower extremities. HISTORY OF PRESENT ILLNESS: This is an 82-year-old male who is confused. Upon questioning the patient, had some itching and burning to both lower extremities. The patient has been on cefepime IV secondary to having found Pseudomonas aeruginosa. PAST MEDICAL HISTORY: Unobtainable. SURGICAL HISTORY: Unobtainable. REVIEW OF SYSTEMS: Unobtainable. CURRENT MEDICATIONS: Listed in the chart. PHYSICAL EXAMINATION VITALS: Afebrile. PODIATRIC PHYSICAL EXAMINATION: Reveals the following: VASCULAR: Pedal pulses in both the dorsal pedis and posterior tibial arteries are palpable, but diminished. Skin temperature warm to touch. NEUROLOGICAL: Unobtainable. MUSCULOSKELETAL: Reveals muscle mass to be symmetrical and wasted. The patient has a partial contracture of the right lower extremity. Very hard to move his extremities. DERMATOLOGICAL: Shows positive edema bilaterally. Multiple nails yellowed discolored and ungual debris with some cellulitis noted. LABS: Show a white blood cell count of 10.65. ASSESSMENT: Dermatophytosis and onychomycosis. PLAN: Will start nystatin cream to both feet and toenails daily. Continue foam boots to prevent any type of decubitus heel ulcerations. Will continue to follow. Job#: [id number] OH
--- NOTE | 2017-08-27 15:06 | Progress Note ---
DATE: August 27, 2017 SUBJECTIVE: Patient alert but confused. OBJECTIVE VITALS: Afebrile. Vital signs stable. EXTREMITIES: Both lower extremities looking a little better. Positive edema. Interdigit cellulitis with excoriations. Nails yellow, discolored with ungual debris. ASSESSMENT: Onychomycosis and dermatophytosis with edema. PLAN: Continue offloading. Will continue nystatin cream. Continue on a b.i.d. basis to both feet and toenails. Will continue to follow. Job#: [id number] RAMOS
[2017-08-27 16:00] VITALS: BP 185/94
[2017-08-27] MEDS: NYSTATIN 100,000 UNITS/GM CRM 30GM TUBE TOP SCH (17:00)
[2017-08-27 20:00] VITALS: BP 161/74
--- NOTE | 2017-08-27 21:15 | Progress Note ---
DATE: INTERNAL MEDICINE PROGRESS NOTE SUBJECTIVE: The patient is confused. He cannot give me any information. PHYSICAL EXAM: VITAL SIGNS: Blood pressure is 158/93. Temperature 97.7. Heart rate 52 per minute. Respiratory rate is 18 per minute. Oxygen saturation 98%. HEART: Shows regular rhythm. Normal S1 and S2 sounds. LUNGS: Clear bilaterally. ABDOMEN: Soft. EXTREMITIES: Show no evidence of cyanosis, edema or trauma. BLOOD WORK: We have a BMP with sodium 139, potassium 3.9, chloride 104, CO2 30, BUN 13, creatinine 0.64, glucose 110. On the CBC: White blood count 10.6, hemoglobin 9.9, hematocrit 30.9, platelet count 193,000. AST 8, ALT 6, total bilirubin 0.6, alkaline phosphatase of 52. FINAL IMPRESSION: 1. Urinary tract infection, prostatitis. 2. Uncontrolled hypertension. 3. Dementia. 4. Benign prostatic hypertrophy. 5. Anemia of chronic disease. 6. Overactive bladder. PLAN OF TREATMENT: Continue IV fluids. Continue Zofran 4 mg IV q.6 h. as needed. Cefepime 2 grams IV q.8 h. Aspirin 81 mg daily. Ferrous sulfate 325 mg daily. Tramadol 50 mg twice a day. Lisinopril 10 mg daily. Clonidine 0.1 mg 3 times a day. Folic acid 0.5 mg daily. Oxybutynin 5 mg twice a day. Lorazepam 0.5 mg daily as needed. Carvedilol 12.5 mg twice a day. Dulcolax 5 mg daily. Remeron 15 mg at bedtime. Multivitamin 1 tablet daily. Vitamin B12, 1000 mcg daily. Furosemide 40 mg daily. Hydralazine 50 mg q.6 h. [facility] corticosteroid to affected area twice a day for the decubitus. We are going to continue monitoring BUN and creatinine and electrolytes. Job#: [id number] EV
[2017-08-27] MEDS: MIRTAZAPINE 15 MG TAB PO SCH (21:25)
[2017-08-28] MEDS: HYDRALAZINE HCL 25 MG TAB PO SCH ×4 (00:08→17:16)
[2017-08-28 00:35] VITALS: BP 169/81
[2017-08-28 06:31] VITALS: BP 161/79
[2017-08-28] MEDS: CEFEPIME HCL 2 GM VIAL IV SCH ×3 (06:40→22:20)
[2017-08-28] MEDS: CARVEDILOL 12.5 MG TAB PO SCH ×2 (06:41→17:16)
[2017-08-28 08:00] VITALS: BP 167/88
[2017-08-28] MEDS: CYANOCOBALAMIN 1,000 MCG TAB PO SCH (08:21)
[2017-08-28] MEDS: FOLIC ACID/CYANOCOB/PYRIDOXINE TAB PO SCH (08:21)
[2017-08-28] MEDS: FOLIC ACID 1 MG TAB PO SCH (08:21)
[2017-08-28] MEDS: NYSTATIN 100,000 UNITS/GM CRM 30GM TUBE TOP SCH ×2 (08:21→17:16)
[2017-08-28] MEDS: FUROSEMIDE 40 MG TAB PO SCH (08:21)
[2017-08-28] MEDS: FERROUS SULFATE 325 MG TAB PO SCH (08:21)
[2017-08-28] MEDS: BALSAM PERU/CASTOR OIL 60 GM OINT...G. TP SCH ×2 (08:21→21:50)
[2017-08-28] MEDS: LISINOPRIL 10 MG TAB PO SCH (08:21)
[2017-08-28] MEDS: ASPIRIN 81 MG CHEW TAB PO SCH (08:21)
[2017-08-28] MEDS: OXYBUTYNIN CHLORIDE 5 MG TAB PO SCH ×2 (08:21→17:16)
[2017-08-28] MEDS: SODIUM CHLORIDE 0.9% 1000ML 1,000 ML IV SCH (11:02)
[2017-08-28 12:00] VITALS: BP 181/79
[2017-08-28] MEDS: CLONIDINE HCL 0.1 MG TAB PO PRN (12:15)
--- NOTE | 2017-08-28 13:53 | Progress Note ---
DATE: INTERNAL MEDICINE PROGRESS NOTE He is doing well. Sleeping right now. PHYSICAL EXAMINATION VITAL SIGNS: Blood pressure 167/88, temperature 98.4, heart rate 60 per minute, respiratory rate is 20 per minute, oxygen saturation 98%. HEART: Regular rhythm. Normal S1 and S2 sounds. LUNGS: Clear bilaterally. ABDOMEN: Soft. EXTREMITIES: Show 1+ bilateral pedal edema. BLOOD WORK: We have BMP with sodium 139, potassium 3.9, chloride 104, CO2 30, BUN 13, creatinine 0.64, glucose 110. On the CBC, white blood count 10.6, hemoglobin 9.9, hematocrit 30.9, and platelet 183,000. AST and ALT 6, total bilirubin 0.6, alkaline phosphatase 52. FINAL IMPRESSION 1. Urinary tract infection. 2. Prostatitis with multidrug resistant Pseudomonas aeruginosa. 3. Dementia. 4. Uncontrolled hypertension. 5. Overactive bladder. 6. Anxiety disorder. 7. Vitamin B12 deficiency. PLAN OF TREATMENT 1. We are going to continue with IV fluids at 75 mL an hour quarter normal saline. 2. Zofran 4 mg IV q.6 h. as needed. 3. Cefepime 2 g IV q.8 h. 4. Aspirin 81 mg daily. 5. Ferrous sulfate 325 mg daily. 6. Tramadol 50 mg twice a day. 7. Lisinopril 10 mg daily. 8. Continue clonidine 0.1 mg 3 times a day. 9. Folic acid 0.5 mg daily. 10. Oxybutynin 5 mg twice a day. 11. Lorazepam 0.5 mg daily. 12. Nystatin to affected area twice a day. 13. Carvedilol 12.5 mg twice a day. 14. Bisacodyl 5 mg daily as needed. 15. Remeron 15 mg at bedtime for poor appetite. 16. Multivitamin which include folic acid, vitamin B12 and pyridoxine 1 tablet daily. 17. Vitamin 12 1000 mcg daily. 18. Furosemide 40 mg daily. 19. Hydralazine 50 mg q.6 h. 20. Barnett Oil twice a day. We are going to increase the lisinopril to 20 mg daily due to the uncontrolled hypertension. We are going to see if we can get the patient to [facility] if approved by insurance due to failure of outpatient treatment for [facility] and [facility]. Job#: [id number] RI
[2017-08-28 16:00] VITALS: BP 142/64
[2017-08-28 20:00] VITALS: BP 169/73
[2017-08-28] MEDS: MIRTAZAPINE 15 MG TAB PO SCH (21:50)
[2017-08-29] VITALS (9 sets, daily range): BP systolic 158–196; BP diastolic 74–98
[2017-08-29] MEDS: CEFEPIME HCL 2 GM VIAL IV SCH (05:21)
[2017-08-29] MEDS: HYDRALAZINE HCL 25 MG TAB PO SCH ×4 (05:22→17:54)
[2017-08-29] MEDS: CARVEDILOL 12.5 MG TAB PO SCH ×2 (05:22→17:54)
[2017-08-29] MEDS ORDERED: LISINOPRIL 20 MG TAB PO SCH (09:00)
--- NOTE | 2017-08-29 09:15 | Progress Note ---
DATE: August 29, 2017 SUBJECTIVE: Patient seen at bedside. Feeling better. Decreased itching and pain to both lower extremities according to the patient. OBJECTIVE: Vitals: Afebrile. Pulse rate 53, respirations 20, blood pressure 175/80, O2 saturation at 98%. Both lower extremities continue to improve. No open lesions noted. Pedal pulses are diminished. Multiple nails are yellow discolored with subungual debris. ASSESSMENT: Dermatophytosis and onychomycosis with cellulitis. PLAN: Continue nystatin cream. Continue off loading. Will continue to follow. Job#: [id number]
--- NOTE | 2017-08-29 09:55 | Diagnostic Imaging Report ---
PROCEDURE:X-RAY ABDOMEN - KUB COMPARISON:CT abdomen and pelvis without contrast 05/12/2017. INDICATIONS:folow up stones FINDINGS: The bowel gas pattern shows multiple dilated air-filled loops of bowel with a large amount of fecal material throughout the large bowel. No radiopaque calculi are identified projecting over the renal shadows or expected ureteral courses. 4 mm nonobstructing right lower pole renal calculus described on the comparison CT is not identified by plain radiography. Atherosclerotic vascular calcifications. Left proximal femoral surgical hardware partially visualized. Osteopenia without acute osseous abnormality. Suprapubic bladder catheter is partially visualized. CONCLUSION: No plain radiographic evidence of urolithiasis. 4 mm right lower pole renal calculus identified on the comparison CT is not visualized by plain radiography. Large amount of fecal material within the large bowel. Correlate for constipation. Dictated by: Milind Gama M.D. on 08/29/2017 at 9:57 Electronically approved by: Milind Gama M.D. on 08/29/2017 at 9:57
[2017-08-29] MEDS: FOLIC ACID 1 MG TAB PO SCH (09:58)
[2017-08-29] MEDS: FERROUS SULFATE 325 MG TAB PO SCH (09:58)
[2017-08-29] MEDS: NYSTATIN 100,000 UNITS/GM CRM 30GM TUBE TOP SCH ×2 (09:58→17:53)
[2017-08-29] MEDS: OXYBUTYNIN CHLORIDE 5 MG TAB PO SCH ×2 (09:58→17:53)
[2017-08-29] MEDS: FUROSEMIDE 40 MG TAB PO SCH (09:58)
[2017-08-29] MEDS: ASPIRIN 81 MG CHEW TAB PO SCH (09:58)
[2017-08-29] MEDS: FOLIC ACID/CYANOCOB/PYRIDOXINE TAB PO SCH (09:58)
[2017-08-29] MEDS: CYANOCOBALAMIN 1,000 MCG TAB PO SCH (09:58)
[2017-08-29] MEDS: BALSAM PERU/CASTOR OIL 60 GM OINT...G. TP SCH ×2 (09:58→22:01)
[2017-08-29] MEDS ORDERED: HYDRALAZINE HCL 20 MG/ML VIAL IV PRN (12:45)
--- NOTE | 2017-08-29 12:57 | Progress Note ---
DATE: INTERNAL MEDICINE PROGRESS NOTE ADDENDUM: Based on the urine culture report that we finally got, the pseudomonas is resistant to cefepime; and, so, therefore, we are going to switch the cefepime to meropenem 500 mg IV q.6 hours for at least 2 weeks. Job#: [id number] EV
--- NOTE | 2017-08-29 12:59 | Progress Note ---
DATE: INTERNAL MEDICINE PROGRESS NOTE Actually, infectious disease has discontinued also the antibiotic based on urology's recommendation because the followup urine culture has been negative. We are going to start working on the transfer to [facility]. The blood pressure is out of control, so we increased the lisinopril. We put him on Norvasc besides hydralazine besides Lasix and besides Coreg. Once the blood pressure has been controlled, then [facility] can [facility]. Job#: [id number]
--- NOTE | 2017-08-29 13:08 | Progress Note ---
DATE: INTERNAL MEDICINE PROGRESS NOTE SUBJECTIVE: Patient has no significant complaints although he is confused. PHYSICAL EXAM: VITAL SIGNS: Blood pressure is 175/80, temperature 98.9, heart rate 53 per minute, respiratory rate is 20 per minute, oxygen saturation 98%. HEART: Shows regular rhythm, normal S1 and S2 sounds. LUNGS: Clear bilaterally. ABDOMEN: Soft. EXTREMITIES: Show no evidence of cyanosis, edema or trauma. FINAL IMPRESSION: 1. Recurrent urinary tract infection. 2. Prostatitis with a multidrug resistant Pseudomonas aeruginosa. 3. Uncontrolled hypertension. 4. Benign prostatic hypertrophy. 5. Anemia of chronic disease. 6. Right buttock decubitus stage 2 to 3. 7. Dementia. 8. Overactive bladder. PLAN OF TREATMENT: Continue cefepime 2 grams IV q.8 hours. Aspirin 81 mg daily. Zofran 4 mg IV q.6 hours as needed. Clonidine 0.1 mg q.8 hours as needed for hypertension. Folic acid 0.5 mg daily. Oxybutynin 5 mg twice a day. Multivitamin with folic acid, cyanocobalamin and pyridoxine 1 tablet daily. Lisinopril 20 mg daily, which I am going to increase to 30 mg daily because of the hypotension. Continue carvedilol 12.5 mg twice a day. Bisacodyl 5 mg p.o. daily as needed for constipation. Remeron 15 mg at bedtime. Balsam rickie with castor oil 1 application topically twice a day. Vitamin B12, 1000 mcg daily. Furosemide 40 mg daily. Hydralazine 50 mg q.6 hours. Continue with ferrous sulfate 325 mg daily because of anemia. Continue tramadol 50 mg twice a day as needed. Lorazepam 0.5 mg daily. Nystatin 1 application twice a day. We are going to try to see if we can get approval from the insurance company for him to go to [facility] due to the fact that he failed outpatient treatment at a long-term for UTI and prostatitis. If he is not approved, then of course he has to go back to [facility]. Job#: [id number] EV
--- NOTE | 2017-08-29 13:15 | Progress Note ---
DATE: August 28, 2017 SUBJECTIVE: Patient seen at bedside in no distress. OBJECTIVE: Afebrile. Vital signs stable. Both lower extremities are looking better. Decreased cellulitis. Multiple nails are yellow discolored with subungual debris. Pedal pulses are diminished. ASSESSMENT: Dermatophytosis, onychomycosis. PLAN: Continue plan of prescribed medications. Continue offloading. Will continue to follow. Job#: [id number]
[2017-08-29] MEDS: CLONIDINE HCL 0.1 MG TAB PO PRN (13:19)
--- NOTE | 2017-08-29 13:25 | Progress Note ---
DATE: INTERNAL MEDICINE PROGRESS NOTE SUBJECTIVE: Going to add Norvasc 5 mg daily and lisinopril 30 mg daily. To increase to 30 mg daily due to the uncontrolled hypertension. He is on clonidine as needed q.8 hours. Job#: [id number] DG
[2017-08-29 13:47] LABS: FERRITIN 251.25 ng/mL (21.81-274.66)
[2017-08-29] MEDS ORDERED: HYDRALAZINE HCL 20 MG/ML VIAL IV STA (15:44)
[2017-08-29] MEDS ORDERED: MEROPENEM 500MG 500 MG in SODIUM CHLORIDE 0.9% 50ML 50 ML IV SCH (18:00)
[2017-08-29] MEDS: MIRTAZAPINE 15 MG TAB PO SCH (22:00)
[2017-08-30] VITALS (9 sets, daily range): BP systolic 150–207; BP diastolic 70–93
[2017-08-30] MEDS: HYDRALAZINE HCL 25 MG TAB PO SCH ×6 (00:36→23:26)
[2017-08-30] MEDS: HYDRALAZINE HCL 20 MG/ML VIAL IV PRN ×3 (04:44→23:28)
[2017-08-30] MEDS: CARVEDILOL 12.5 MG TAB PO SCH ×2 (06:20→17:26)
[2017-08-30] MEDS: NYSTATIN 100,000 UNITS/GM CRM 30GM TUBE TOP SCH ×2 (08:44→17:25)
[2017-08-30] MEDS: AMLODIPINE BESYLATE 5 MG TAB PO SCH (08:44)
[2017-08-30] MEDS: FUROSEMIDE 40 MG TAB PO SCH (08:44)
[2017-08-30] MEDS: OXYBUTYNIN CHLORIDE 5 MG TAB PO SCH ×2 (08:44→17:24)
[2017-08-30] MEDS: CYANOCOBALAMIN 1,000 MCG TAB PO SCH (08:44)
[2017-08-30] MEDS: FOLIC ACID 1 MG TAB PO SCH (08:44)
[2017-08-30] MEDS: FERROUS SULFATE 325 MG TAB PO SCH (08:44)
[2017-08-30] MEDS: FOLIC ACID/CYANOCOB/PYRIDOXINE TAB PO SCH (08:44)
[2017-08-30] MEDS: BALSAM PERU/CASTOR OIL 60 GM OINT...G. TP SCH ×2 (08:44→21:12)
[2017-08-30] MEDS: ASPIRIN 81 MG CHEW TAB PO SCH (08:44)
[2017-08-30] MEDS ORDERED: ERGOCALCIFEROL 50,000 UNIT CAP PO SCH (09:00)
[2017-08-30] MEDS ORDERED: [UNRECOGNIZED DRUG - OTHER] PEG SCH (09:00)
[2017-08-30] MEDS ORDERED: VITAMIN D2 PEG SCH (09:00)
[2017-08-30] MEDS ORDERED: LISINOPRIL 20 MG TAB PO SCH ×2 (09:00)
[2017-08-30] MEDS ORDERED: CEPHALEXIN 500 MG CAP PO SCH (09:15)
--- NOTE | 2017-08-30 15:44 | Discharge Summary ---
He is an 82-year-old male with a past medical history positive for hypertension, history of dementia, history of suprapubic tube placement, came from the senior care because he had multidrug-resistant Pseudomonas aeruginosa. Patient was started on cefepime and transferred here. Finished a course of IV antibiotics. The blood pressure was extremely high. We have to increase the blood pressure medications several times. Today, the blood pressure is 166/79. He might be able to go back to senior care today if the blood pressure is less than 160/90, but more than 100/50 of course. VITAL SIGNS: Blood pressure 166/79, temperature 97.9 degrees, heart rate 65 per minute, respiratory rate is 20 per minute, oxygen saturation 98%. LAB WORK: We have BMP with sodium 139, potassium 3.9, chloride 104, CO2 30, BUN 13, creatinine 0.6, glucose 110. On the CBC, white blood count 10.6, hemoglobin 9.9, hematocrit 30.9, platelet count 183,000. AST 8, ALT 6, total bilirubin 0.6, alkaline phosphatase 52. FINAL IMPRESSION 1. Urinary tract infection with pseudomonas. 2. Dementia. 3. Uncontrolled hypertension. 4. Status post suprapubic tube placement. PLAN OF TREATMENT 1. Continue aspirin 81 mg daily. 2. Clonidine 0.1 mg 3 times a day as needed. 3. Carvedilol 12.5 mg twice a day. 4. Remeron 15 mg at bedtime. 5. Hydralazine 20 mg IV q.4 h. which we are going to discontinue. 6. Continue furosemide 40 mg daily. 7. Hydralazine 50 mg q.6 h. 8. Continue with ferrous sulfate 325 mg daily. 9. Tramadol 50 mg twice a day as needed. 10. Lorazepam 0.5 mg daily as needed. 11. Nystatin to affected area twice a day for a total of 2 weeks. 12. Folic acid 0.5 mg daily. 13. Oxybutynin 5 mg twice a day. 14. Amlodipine 5 mg daily. 15. He is on lisinopril 40 mg daily. Transfer to the senior care today if the blood pressure is less than 160/90. GUANAKO BRITO MD Job#: [id number] RI
[2017-08-30] MEDS: MIRTAZAPINE 15 MG TAB PO SCH (21:12)
[2017-08-31] VITALS: BP 195/84
[2017-08-31 04:00] VITALS: BP 153/70
[2017-08-31] MEDS: CARVEDILOL 12.5 MG TAB PO SCH (06:06)
[2017-08-31] MEDS: HYDRALAZINE HCL 25 MG TAB PO SCH (06:06)
[2017-08-31 07:50] VITALS: BP 177/76
[2017-08-31] MEDS: ASPIRIN 81 MG CHEW TAB PO SCH (07:50)
[2017-08-31] MEDS: FERROUS SULFATE 325 MG TAB PO SCH (07:50)
[2017-08-31] MEDS: BALSAM PERU/CASTOR OIL 60 GM OINT...G. TP SCH (07:50)
[2017-08-31] MEDS: FOLIC ACID 1 MG TAB PO SCH (07:50)
[2017-08-31] MEDS: FUROSEMIDE 40 MG TAB PO SCH (07:50)
[2017-08-31] MEDS: NYSTATIN 100,000 UNITS/GM CRM 30GM TUBE TOP SCH (07:50)
[2017-08-31] MEDS: OXYBUTYNIN CHLORIDE 5 MG TAB PO SCH (07:50)
[2017-08-31] MEDS: AMLODIPINE BESYLATE 5 MG TAB PO SCH (07:50)
[2017-08-31] MEDS: CYANOCOBALAMIN 1,000 MCG TAB PO SCH (07:50)
[2017-08-31] MEDS: FOLIC ACID/CYANOCOB/PYRIDOXINE TAB PO SCH (08:00)
--- NOTE | 2017-08-31 08:35 | Progress Note ---
DATE: August 30, 2017 SUBJECTIVE: Patient seen at bedside in no distress. OBJECTIVE: Vitals: Afebrile. Vital signs stable. Both lower extremities are getting better. Positive edema noted to both lower extremities, with interdigit cellulitis and excoriations resolving with the nystatin cream. Pedal pulses are diminished. ASSESSMENT: Onychomycosis, dermatophytosis, cellulitis. PLAN: Continue the plan and prescribed medications. Continue offloading. Will continue to follow. Job#: [id number]
--- NOTE | 2017-08-31 08:39 | Progress Note ---
DATE: August 31, 2017 SUBJECTIVE: Patient seen at bedside. Somewhat alert but still confused. Relates he is feeling better to both lower extremities. OBJECTIVE: Vitals: Temp 100, pulse rate 65, respirations 18. Blood pressure 153/70. O2 saturation 93%. White blood cell count 10.6, hemoglobin 9.9. Positive edema to both lower extremities, left worse than right. No open lesions with dermatophytosis, excoriations in between the digits, and dystrophic toenails 1 through 5 bilaterally. ASSESSMENT: Onychomycosis, dermatophytosis, edema. PLAN: Continue elevation and offloading. Continue nystatin cream. Will continue to follow. Job#: [id number]
[2017-08-31] MEDS ORDERED: LISINOPRIL 20 MG TAB PO SCH (09:00)
[2017-08-31] MEDS ORDERED: CEPHALEXIN 500 MG CAP PO SCH (09:00)
[2017-08-31 09:42] VITALS: BP 177/76
== END 2017-08-31 09:32 | DRG 698 ==
LOC: ER 13:43 → ERHOLD 15:21 → MED/SURG3 17:57
PROVIDERS: ADMIT Internal Medicine; ATTEND Internal Medicine
DX: T83.511A Infection and inflammatory reaction due to indwelling urethral catheter, initial encounter (principal); A41.89 Other specified sepsis; L89.323 Pressure ulcer of left buttock, stage 3; G93.41 Metabolic encephalopathy; R65.20 Severe sepsis without septic shock; F03.91 Unspecified dementia, unspecified severity, with behavioral disturbance; L03.116 Cellulitis of left lower limb; L03.115 Cellulitis of right lower limb; F02.81 Dementia in other diseases classified elsewhere, unspecified severity, with behavioral disturbance; N39.0 Urinary tract infection, site not specified; N41.8 Other inflammatory diseases of prostate; R45.1 Restlessness and agitation; B96.5 Pseudomonas (aeruginosa) (mallei) (pseudomallei) as the cause of diseases classified elsewhere; E87.6 Hypokalemia; N32.81 Overactive bladder; D63.8 Anemia in other chronic diseases classified elsewhere; N40.0 Benign prostatic hyperplasia without lower urinary tract symptoms; R60.0 Localized edema; B35.1 Tinea unguium; N41.9 Inflammatory disease of prostate, unspecified; F41.9 Anxiety disorder, unspecified; E53.8 Deficiency of other specified B group vitamins; Z87.440 Personal history of urinary (tract) infections; N20.0 Calculus of kidney; M62.461 Contracture of muscle, right lower leg; G30.9 Alzheimer's disease, unspecified; I10 Essential (primary) hypertension; N31.9 Neuromuscular dysfunction of bladder, unspecified; N39.498 Other specified urinary incontinence; K59.00 Constipation, unspecified; Z16.29 Resistance to other single specified antibiotic
CPT/HCPCS: 36415; 51701; 74018; 80048; 80053; 81001; 82270; 82550; 82553; 82607; 82728; 83540; 83735; 84466; 84484; 85025; 87086; 87186; 96361; 97139; 99284; J0360; J0692; J7030